=== PATIENT | male | born 1965 | race African-American/Black ===

== ENCOUNTER 2016-09-17 18:00 | Inpatient (IN) | payer OTHER ==
[~2016-09-17] VITALS: Ht 172.7 cm; Wt 83.5 kg
[2016-09-17] VITALS (15 sets, daily range): BP systolic 103–181; BP diastolic 63–122
[~2016-09-17 18:00] MED LIST: ATROVENT 00.5 MG/3 M INH; DULERA1 AR1 IH; PROVENTIL2.5 MG/3 M INH; VENTOLIN H0.09 MG/Ac IH
--- NOTE | 2016-09-17 18:00 | NUR ---
BROUGHT IN BY AMBULANCE DUE TO FAMILY CALLED 911 FOR BEING UNRESPONSIVE .PT WITH HX OF ASTHMA.
[2016-09-17] MEDS ORDERED: ETOMIDATE 20 MG/10 ML VIAL IVP ONE (18:20)
[2016-09-17] MEDS ORDERED: ALBUTEROL 0.083% 2.5 MG/3 ML NEBU INH ONE (18:20)
[2016-09-17] MEDS ORDERED: LORazepam 2 MG/ML VIAL IVP ONE ×2 (18:20→18:40)
[2016-09-17] MEDS ORDERED: SUCCINYLCHOLINE CHLORIDE 200 MG/10 ML VIAL IVP ONE (18:20)
[2016-09-17] MEDS ORDERED: methylPREDNISolone SS 125 MG/2 ML VIAL IVP ONE (18:20)
[2016-09-17] MEDS ORDERED: MAG SULF 2000 MG/WATER PREMIX 50 ML IV ONE (18:20)
[2016-09-17] MEDS ORDERED: IPRATROPIUM 0.02% 0.5 MG/2.5 ML NEBU INH ONE (18:20)
[2016-09-17] MEDS ORDERED: LORazepam 2 MG/ML VIAL ONE (18:24)
[2016-09-17] MEDS ORDERED: PROPOFOL 1000 MG/100 ML PREMIX 100 ML IV ONE ×2 (18:35→18:42)
--- NOTE | 2016-09-17 18:45 | NUR ---
UNABLE TO DOCUMENT PROPOFOL DRIP AT [facility] BUT HANGED IV AT 5 MCG/KG/MIN.
--- NOTE | 2016-09-17 18:50 | NUR ---
Cooney catheter 16fr inserted without difficulty.
[2016-09-17] MEDS ORDERED: VECURONIUM 10 MG VIAL IVP ONE ×2 (19:30→19:35)
[2016-09-17] MEDS ORDERED: WATER STERILE 10 ML MC ONE (19:35)
--- NOTE | 2016-09-17 19:36 | NUR ---
HANDED OVER CARE TO SAPNA GODINEZ. REPORT GIVEN.
--- NOTE | 2016-09-17 19:38 | NUR ---
PT IN ER , VIA AMBULANCE, HX ASTHMA, WITH DISTRESS WITHOUT BREAST SOUNDS AUDIBLE.PT INTUBATED AT 19 10, SPUTUM COLLECTED, AND HHN WITH ALBUTEROL 5MG AND ATOVENT IN LINE OF THE VENT. ( RT ADAM AT BED SIDE HELPING WITH INTUBATION)
[2016-09-17] MEDS ORDERED: NACL 0.9% 1,000 ML IV ONE (19:45)
[2016-09-17] MEDS ORDERED: MORPHINE SULFATE 2 MG/ML SYR IVP PRN (20:00)
[2016-09-17] MEDS ORDERED: ONDANSETRON 4 MG/2 ML VIAL IVP PRN (20:00)
[2016-09-17] MEDS ORDERED: HYDROcodone/APAP 7.5/325 MG 1 TAB PO PRN (20:00)
[2016-09-17] MEDS ORDERED: ACETAMINOPHEN 325 MG TAB PO PRN (20:00)
--- NOTE | 2016-09-17 20:13 | NUR ---
ABG DONE, REPORTED TO DR ONTIVEROS, CHANGES IN THE SETTING WAS DONE, AC 12, VT 500, AND FIO2 TO 50%(RN NOTIFIED)
--- NOTE | 2016-09-17 20:16 | NUR ---
Patient will be admitted to care of DR CRABTREE. Admited to ICU 3. Will go to room 3. Belongings list completed. Report to THEODORE ALEJO .
--- NOTE | 2016-09-17 21:13 | NUR ---
TRANSFERRED TO ICU3 WITHOUT INCIDENT. PLACED BACK ON SAME VENT WITH SAME PARAMETERS. RN AT BEDSIDE.
[2016-09-17] MEDS ORDERED: PROPOFOL 1000 MG/100 ML PREMIX 100 ML IV PRN (21:40)
--- NOTE | 2016-09-17 22:25 | NUR ---
RECEIVED REPORT FROM SETH TONY RN, ADMISSION FROM ER. DR. JOSE CAME IN TO SEE PATIENT AND TALKED TO THE FAMILY. SEDATED ON PROPOFOL AT 25MGC/KG/MIN. FULL CODE, ON ELECTROPLATING SALES REPRESENTATIVE, VITALLY STABLE. ETT TO VENT: FIO2 50%, TV 500, AC RATE OF 12, PEEP OF 5. NGT ON RT. NARE CLAMPED. WITH PERIPHERAL IV G20 ON RIGHT AC RUNNING PROPOFOL. PERIPHERAL IV G20 ON LEFT HAND G20. SEARS CATHETER DRAINING TO YELLOWISH URINE OUTPUT. SKIN INTACT. SCD ON BOTH LEGS APPLIED.
--- NOTE | 2016-09-17 22:38 | NUR ---
ABG DONE, RESULTS REPORTED TO DR JOSE, PT TO REMAIN ON SAME VENT PARAMETERS AC 12, VT500, PEEP+5, FI02 50%
--- NOTE | 2016-09-17 22:55 | NUR ---
PT WAS MOVED FROM ICU BED 3 TO ICU BED 5. RT AT BEDSIDE WITH RN. NO DISTRESS/ NO SOB NOTED AT THIS TIME
--- NOTE | 2016-09-17 22:55 | NUR ---
TRANSFERRED TO ICU5 PLACED BACK ON THE VENT WITH THE SAME PARAMETERS. RETAPED ETT AT 24CM PER DR JOSE. PT TOLERATING SUPPORT WELL. NO RESP DISTRESS NOTED.
[2016-09-17] MEDS: NACL 0.9% 1,000 ML IV SCH (23:10)
[2016-09-17] MEDS: LEVOFLOXACIN 750 MG/D5W PREMIX 150 ML IV SCH (23:12)
--- NOTE | 2016-09-17 23:15 | NUR ---
PAGED DIVISION TOLL WIRE CHIEF DOCTOR OF DR. CRABTERE. DR. BARTLETT CALLED BACK AND CLARIFIED WITH HER FOR THE NEXT TROPONIN ORDER. DR. BARTLETT SAID SHE WILL PUT IN THE ORDER.
[2016-09-18] VITALS (104 sets, daily range): BP systolic 92–154; BP diastolic 46–108
[2016-09-18] MEDS: ALBUTEROL SULFATE/IPRATROPIU 3 ML SOL IH SCH ×7 (00:20→23:00)
--- NOTE | 2016-09-18 00:31 | NUR ---
HHNTX GIVEN, SUCTION SML AMT OF THICK YEL SECRETION, TOLERATED WELL.
[2016-09-18] MEDS: PROPOFOL 1000 MG/100 ML PREMIX 100 ML IV PRN ×6 (00:40→21:49)
--- NOTE | 2016-09-18 01:38 | NUR ---
PT TAKEN AT TO CT AT 0105. BACK TO ICU 5, PLACED BACK ON VENT WITH SAME PARAMETERS.
--- NOTE | 2016-09-18 02:00 | NUR ---
PATIENT VOMITED FOOD CONTENTS. SUCTIONING ORALLY DONE. NGT CONNECTED TO LOW INTERMITTENT SUCTION. DR. GAYTAN INFORMED. ORDERS TAKEN.
--- NOTE | 2016-09-18 02:14 | NUR ---
RECEIVED CRITICAL CT SCAN RESULT. PAGED AND NOTIFIED DR. GAYTAN.
--- NOTE | 2016-09-18 04:20 | NUR ---
NOTIFIED DR. BARTLETT FOR CRITICAL LAB TROPONIN 0.274. NO ORDERS MADE AT THIS TIME. WILL FOLLOW UP.
[2016-09-18] MEDS: methylPREDNISolone SS 40 MG/ML VIAL IVP SCH ×3 (04:46→21:22)
[2016-09-18] MEDS ORDERED: methylPREDNISolone SS 40 MG/ML VIAL ONE (04:47)
--- NOTE | 2016-09-18 06:33 | NUR ---
AM CARE GIVEN, SUCTIONING OF SECRETIONS DONE. ALL LINENS AND GOWN CHANGED. VITALLY STABLE. STILL SEDATED. NO SIGNS OF RESPIRATORY DISTRESS AT THIS TIME.
[2016-09-18] MEDS: BUDESONIDE 0.5 MG/2 ML NEBU INH SCH ×2 (07:02→19:09)
--- NOTE | 2016-09-18 07:02 | NUR ---
RECEIVED ON A UnifyoSCAPE R860 VENTILATOR PLUGGED INTO RED OUTLET TOLERATING WELL WITHOUT ADVERSE REACTIONS NOTED TO AN ETT #7.5 SECURED WITH AN ANCHOR FAST AT 24CM REPOSITIONED TO RIGHT SIDE OF MOUTH CUFF PRESSURE CHECKED FOR MOV AMBU BAG NOTED AT HOB LOC QUIET SEDATED NON RESPONSIVE TO WAD PRINTING MACHINE OPERATOR VERBAL COMMANDS BREATH SOUNDS INSP WHEEZE BILATERAL WITH GOOD CHEST RISE AIRWAY PATENT Addendum: 09/18/16 at 0730 by Matt Adkins RT SATURATION 98% ON FIO2 OF 50% POST HHN THERAPY TITRATED FIO2 TO 45% BENITO/SAPNA NOTIFIED ABG RESULTS 09/17/16 @ 7139 REVIEWED
--- NOTE | 2016-09-18 07:05 | NUR ---
DR. BARRERA CAME IN AND SEE THE PATIENT, INFORMED OF POSITIVE FOR COCAINE AND PHENCYCLIDINE. PATIENT REPORT GIVEN TO DAY SHIFT RN BENITO. VITALLY STABLE. STILL SEDATED ON PROPOFOL. ENDORSED ABOUT FLU/PNEUMONIA VACCINE.
--- NOTE | 2016-09-18 07:28 | NUR ---
RECEIVED PT FROM HOSPITAL CNA SAPNA CONCEPCINO. PT IS SEDATED . MONITOR SHOWS SR. PT ON ETT TO VENT SETTING FIO2=45%, VT 500, AC 12, PEEP 5. NGT ON RIGHT NARES WITH LIWS. IV TO RIGHT AC #20 RUNNING PROPOFOL 45 MCG/KG/MIN AND LEFT HAND #20 RUNNING 0.9 NS AT 100 ML/HR. ABDOMEN SOFT WITH ACTIVE BOWEL SOUNDS. SEARS CATH IN PLACE WITH CLEAR LIGHT YELLOW URINE. SCDS IN PLACE, SKIN INTACT. SIDE RAILS UP X2 WITH LOW BED POSITION. HOB ELEVATED 30 DEGREES. NO FEVER. WILL CONTINUE TO MONITOR.
--- NOTE | 2016-09-18 07:32 | NUR ---
DR. CRABTREE AND HIS GROUP CAME IN TO SEE PT, UPDATED PT CONDITION. WILL FOLLOW UP.
--- NOTE | 2016-09-18 08:27 | NUR ---
PATIENT HAS BEEN SCREENED AND CATEGORIZED HIGH NUTRITION RISK. PATIENT WILL BE SEEN WITHIN 1-2 DAYS OF ADMISSION. 09/17/16-09/19/[address] Addendum: 09/18/16 at [address] DATE CORRECTION: 09/18/16-09/19/[address]
[2016-09-18] MEDS: SACCHAROMYCES 250 MG CAP PO SCH ×2 (09:17→21:22)
[2016-09-18] MEDS: DOCUSATE SODIUM 100 MG GELCAP PO SCH (09:18)
--- NOTE | 2016-09-18 09:55 | NUR ---
SEDATED RESTING WELL NO DISTRESS NOTED BREATH SOUNDS DIMINISHED BILATERAL GOOD CHEST RISE AIRWAY PATENT
--- NOTE | 2016-09-18 10:30 | NUR ---
DR. BARRERA PRESENT TO PT'S BEDSIDE TO EXPLAIN THE RISKS AND BENEFITS OF COMPUTED TOMOGRAPHY WITH CONTRAST AND CENTRAL VENOUS PRESSURE LINE INSERTION TO PT'S MOTHER EL STANLEY. QUESTIONS ANSWERED. PT'S MOTHER VERBALIZED UNDERSTANDING AND SIGNED CONSENTS.
[2016-09-18] MEDS ORDERED: MORPHINE SULFATE 2 MG/ML SYR IVP PRN (10:55)
[2016-09-18] MEDS ORDERED: ACETAMINOPHEN 325 MG TAB NG PRN (10:55)
[2016-09-18] MEDS ORDERED: ONDANSETRON 4 MG/2 ML VIAL IVP PRN (10:55)
[2016-09-18] MEDS ORDERED: HYDROcodone/APAP 5/325 MG 1 TAB TAB NG PRN (10:55)
--- NOTE | 2016-09-18 11:35 | NUR ---
ICE SKATING TEACHER AND RT PRESENTED AT PT'S BEDSIDE FOR COMPUTED TOMOGRAPHY OF CHEST AND SINUS WITH CONTRAST. CHANGED MONITOR TO ASSOCIATE SALES, MONITOR SHOWS SR. NO S/S OF RESPIRATORY DISTRESS NOTED. ACCOMPANIED BY RT, ICE SKATING TEACHER AND RN. PT VITALS STABLE AT THIS TIME.
--- NOTE | 2016-09-18 11:39 | NUR ---
TRANSFERRED TO RADIOLOGY FOR CT SCAN OF CHEST AND SINUSES Addendum: 09/18/16 at 1248 by Matt Adkins RT SUPPLEMENTAL OXYGEN VIA E TANK AT 15 LPM TO AMBU BAG/TRACH SATURATION 100% HR 92 AMBU BAG DEPRESSIN EVERY SIX SECONDS TOLERATED WELL WITHOUT INCIDENT
[2016-09-18] MEDS ORDERED: SODIUM PHOS / POTASSIUM PHOS 1 PKT PDR PO SCH (11:45)
[2016-09-18] MEDS ORDERED: PANTOPRAZOLE 40 MG INJ VIAL IVP SCH ×2 (11:45→15:45)
--- NOTE | 2016-09-18 11:48 | NUR ---
09/18/16 RD INITIAL ASSESSMENT COMPLETED PLEASE REFER TO NUTRITION ASSESSMENT UNDER CARE ACTIVITY FOR ESTIMATED NUTRITIONAL NEEDS. RD RECOMMENDATIONS: 1. CONTINUE NPO MEDICALLY APPROPRIATE PER MD 2. SHOULD PT REQUIRE NUTRITION SUPPORT D/T SKILLED LABOR INTUBATION CONSIDER INITIATING TUBE FEEDING NUTREN PULMONARY AT 20 ML/HR AND ADVANCE 15 ML Q6H TO GOAL OF 65 ML/HR VIA NGTUBE --AT GOAL OF 65 ML/HR, NUTRITION SUPPORT WILL PROVIDE 1560 ML TOTAL VOLUME, 2340 KCAL, 106 GM PROTEIN TO MEET 100% OF PT ESTIMATED KCAL NEEDS AND 86% OF PT ESTIMATED PROTEIN NEEDS 2. SHOULD PT BE SUCCESSFULLY EXTUBATED CONSIDER ADVANCE DIET TOLERATED TO REGULAR 3. RD WILL F/U 2-3 DAYS; HIGH RISK. FAUSTO MARRERO RD
--- NOTE | 2016-09-18 12:10 | NUR ---
SEDATED BREATH SOUND INSP/EXP RALES BILATERAL GOOD CHEST RISE ENDOTRACHEAL SUCTION FOR SMALL THICK YELLOW SECRETIONS AIRWAY PATENT
--- NOTE | 2016-09-18 12:17 | NUR ---
FAXED INITIAL REVIEW TO [facility] [phone] PHONE GALLITO [phone]
--- NOTE | 2016-09-18 12:17 | NUR ---
PT BACK TO ICU BED5. NO S/S OF RESPIRATORY DISTRESS NOTED. HOOKED PT ON BEDSIDE MONITOR SHOWING SR. ACCOMPANIED BY RTFELY, RN. WILL CONTINUE TO MONITOR.
[2016-09-18] MEDS: NACL 0.9% 1,000 ML IV SCH ×2 (13:05→17:50)
--- NOTE | 2016-09-18 13:24 | NUR ---
SEDATED RESTING WELL NO DISTRESS NOTED BREATH SOUND DIMINISHED BILATERAL WITH GOOD CHEST RISE AIRWAY PATENT
--- NOTE | 2016-09-18 13:49 | NUR ---
DR. JOSE CAME IN TO SEE PT, UPDATED PT'S CONDITION, WILL FOLLOW UP.
[2016-09-18] MEDS ORDERED: LORazepam 2 MG/ML VIAL IM/IVP SCH (15:35)
--- NOTE | 2016-09-18 15:40 | NUR ---
[facility]AM CAME IN, REPORT GIVEN, MADE THEM AWARE 5150 FORM IN THE DISCHARGE INSTRUCTION PACKAGE. Addendum: 09/18/16 at 1626 by Jeremias Gauthier RN U[facility] PT.
--- NOTE | 2016-09-18 15:50 | NUR ---
SEDATED NO DISTRESS NOTED BREATH SOUNDS DIMINISHED BILATERAL GOOD CHEST RISE ENDOTRACHEAL SUCTION FOR SMALL THIN YELLOW SECRETIONS AIRWAY PATENT
--- NOTE | 2016-09-18 16:12 | NUR ---
DR. BARRERA STARTED CENTRAL VENOUS PRESSURE LINE INSERTION. US GUIDED PER HOSPITAL PROTOCOL.
--- NOTE | 2016-09-18 16:35 | NUR ---
CENTRAL LINE INSERTION DONE. NO S/S OF RESPIRATORY DISTRESS NOTED. VITALS STABLE AT THIS TIME.
--- NOTE | 2016-09-18 16:55 | NUR ---
X-RAY FOR CENTRAL LINE PLACEMENT DONE.
--- NOTE | 2016-09-18 17:20 | NUR ---
SEDATED NO APPARENT RESPIRATORY DISTRESS NOTED BREATH SOUNDS DIFFUSED INSPIRATORY WHEEZE BILATERAL GOOD CHEST RISE SPUTUM COLLECTION DONE ENDOTRACHEAL SUCTION FOR MODERATE THIN YELLOW SECRETIONS AIRWAY PATENT
--- NOTE | 2016-09-18 17:35 | NUR ---
PT IS SEDATED. NO S/S OF RESPIRATORY DISTRESS NOTED. WILL CONTINUE TO MONITOR.
--- NOTE | 2016-09-18 18:05 | NUR ---
REPOSITIONED PT. OFF LOAD PRESSURE AREA. CLEANED PT, MAKE PT FEEL COMFORTABLE .
--- NOTE | 2016-09-18 19:15 | NUR ---
PT OM THE SAME VENT SETTING, PT ON PROPOFOL, TX OM LINE, NO DISTRESS NOTED
--- NOTE | 2016-09-18 19:18 | NUR ---
REPORT GIVEN TO SHEATHER SAPNA VILLALTA. PT IN STABLE CONDITION
--- NOTE | 2016-09-18 19:33 | NUR ---
RECEIVED BEDSIDE REPORT FROM BENITO ALEJO. PATIENT IS SEDATED AND SLEEPING IN BED. NO SIGNS OF RESPIRATORY DISTRESS OR SOB NOTED. PATIENT IS ETT TO VENT WITH SETTINGS OF FIO2 45%, TIDAL VOLUME 500, A/C 12, AND PEEP 5. BREATH SOUNDS ARE DIMINISHED UPON AUSCULTATION. BOWEL SOUNDS ARE HYPOACTIVE. THERE IS A NGT IN THE RIGHT NARES RECEIVING NUTREN PULMONARY AT 50ML/HR. THERE IS A SEARS CATHETER DRAINING TO GRAVITY WITH SMALL AMOUNT OF CLEAR YELLOW URINE NOTED. SCDS ARE IN PLACE FOR VTE PROPHYLAXIS. THERE IS A #20 IN THE PATIENT'S LEFT HAND SALINE LOCK. SITE IS DRY, INTACT, AND ASYMPTOMATIC. THERE IS A #20 IN THE RIGHT AC RECEIVING NORMAL SALINE AT 100 ML/HR AND PROPOFOL AT 45 MCG/KG/MIN. SITE IS DRY, INTACT, AND ASYMPTOMATIC. THERE IS A TRIPLE LUMEN CATHETER PRESENT IN THE RIJ. SITE IS DRY, INTACT, AND ASYMPTOMATIC. FOLLOWED UP WITH DR. SMITH'S ORDERS TO USE RIJ FOR IVF. VITALS ARE WNL. HOB AT 30 DEGREES WITH BED IN LOW POSITION. WILL CONTINUE TO MONITOR PATIENT. Addendum: 09/18/16 at 1948 by Rudy Mccrary RN PATIENT TOLERATING NGT FEEDING WELL. NO RESIDUAL NOTED.
--- NOTE | 2016-09-18 19:40 | NUR ---
PATIENT'S BROTHER ABHILASH AT BEDSIDE. NO CHANGES IN PATIENT'S CONDITION. CONTINUE TO MONITOR.
--- NOTE | 2016-09-18 19:55 | NUR ---
PATIENT'S BROTHER ABHILASH LEFT THE UNIT. NO CHANGES IN PATIENT'S CONDITION. VITALS ARE STABLE. CONTINUE TO MONITOR.
[2016-09-18] MEDS: LEVOFLOXACIN 750 MG/D5W PREMIX 150 ML IV SCH (21:22)
--- NOTE | 2016-09-18 21:35 | NUR ---
PATIENT TOLERATED SCHEDULED MEDICATION ADMINISTRATION. NO S/S OF SOB OR DISCOMFORT NOTED. PATIENT REPOSITIONED FOR COMFORT. VAP ORAL CARE RENDERED. HOB AT 30 DEGREES WITH BED IN LOW POSITION. CONTINUE TO MONITOR PATIENT.
[2016-09-18] MEDS ORDERED: SODIUM PHOS / POTASSIUM PHOS 1 PKT PDR ONE (22:07)
--- NOTE | 2016-09-18 22:15 | NUR ---
SPOKE WITH PATIENT'S MOTHER EL ON THE PHONE AND ASKED ABOUT PATIENT'S PNA AND FLU VACCINE, SHE SAID SHE DOESN'T KNOW IF HER SON ALREADY RECEIVED IT; SHE SAID WE CAN ASK ABOUT IT WHEN THE PATIENT WOKE UP.
[2016-09-19] VITALS (56 sets, daily range): BP systolic 97–141; BP diastolic 53–96
--- NOTE | 2016-09-19 00:16 | NUR ---
PATIENT REPOSITIONED FOR COMFORT. VAP ORAL CARE RENDERED. NO S/S OF RESPIRATORY DISTRESS OR SOB NOTED. HOB AT 30 DEGREES WITH BED IN LOW POSITION. WILL CONTINUE TO MONITOR PATIENT.
[2016-09-19] MEDS: PROPOFOL 1000 MG/100 ML PREMIX 100 ML IV PRN ×3 (01:06→08:48)
[2016-09-19] MEDS: NACL 0.9% 1,000 ML IV SCH ×2 (01:38→12:22)
[2016-09-19] MEDS: ALBUTEROL SULFATE/IPRATROPIU 3 ML SOL IH SCH ×6 (03:23→23:01)
--- NOTE | 2016-09-19 03:26 | NUR ---
MORNING CARE GIVEN. BED BATH PROVIDED. CHANGED LINENS AND PATIENT'S GOWNS. REPOSITIONED PATIENT FOR COMFORT. VAP ORAL CARE RENDERED. NO S/S OF SOB OR RESPIRATORY DISTRESS NOTED. HOB AT 30 DEGREES WITH BED IN LOW POSITION. CONTINUE TO MONITOR PATIENT.
--- NOTE | 2016-09-19 03:31 | NUR ---
RESPIRATORY THERAPIST AT BEDSIDE ADMINISTERING SCHEDULED BREATHING TREATMENT.
--- NOTE | 2016-09-19 03:32 | NUR ---
PT RESTING COMFORTABLY. TX GIVEN.
--- NOTE | 2016-09-19 05:00 | NUR ---
RESPIRATORY THERAPIST AT BEDSIDE.
--- NOTE | 2016-09-19 06:20 | NUR ---
PATIENT SEDATED AND SLEEPING IN BED. NO S/S OF RESPIRATORY DISTRESS NOTED. VITALS ARE STABLE. HOB AT 30 DEGREES WITH BED IN LOW POSITION. CONTINUE TO MONITOR PATIENT.
[2016-09-19] MEDS: BUDESONIDE 0.5 MG/2 ML NEBU INH SCH ×2 (06:59→19:05)
--- NOTE | 2016-09-19 06:59 | NUR ---
RECEIVED ON A [employer]SCAPE R860 VENTILATOR PLUGGED INTO RED OUTLET TOLERATING WELL WITHOUT INCIDENT TO AN ENDOTRACHEAL TUBE (ETT) #7.5 SECURED WITH AN ANCHOR FAST AT 26CM CUFF PRESSURE CHECKED FOR MOP ETT REPOSITIONED TO RIGHT SIDE OF MOUTH NO EVIDENCE OF SKIN BREAKDOWN AT LIP REGION AMBU BAG NOTED AT HOB SEDATED BREATH SOUNDS INSPIRATORY WHEEZE BILATERAL WITH GOOD CHEST RISE HHN THERAPY GIVEN ORDERED TOLERATED WELL WITHOUT ADVERSE REACTIONS NOTED AIRWAY PATENT
--- NOTE | 2016-09-19 07:17 | NUR ---
PATIENT IN STABLE CONDITION. RESPIRATORY AT BEDSIDE. ENDORSED CONTINUITY OF CARE TO BENITO ALEJO AND BRADY ALEJO.
--- NOTE | 2016-09-19 07:30 | NUR ---
RECEIVED BEDSIDE REPORT FROM VEHICLE CHECK IN CLERK RN AMBAR. PT IS SEDATED . MONITOR SHOWS ST. PT ON ETT TO VENT SETTING FIO2=45%, VT 500, AC 12, PEEP 5. NO S/S OF RESPIRATORY DISTRESS NOTED. BREATH SOUNDS DIMINISHED. NGT FEEDING AT 50ML/HR,RESIDUAL 20ML, RETURNED IT BACK. PT HAS RIGHT IJ TLC RUNNING PROPOFOL 45 MCG/KG/MIN AND 0.9 NS AT 100 ML/HR. ABDOMEN SOFT WITH HYPOACTIVE BOWEL SOUNDS. SEARS CATH IN PLACE WITH MODERATE CLEAR YELLOW URINE. SCDS IN PLACE, SKIN INTACT. SIDE RAILS UP X2 WITH LOW BED POSITION. HOB ELEVATED 30 DEGREES. NO FEVER. ORAL CARE GIVEN.WILL CONTINUE TO MONITOR.
--- NOTE | 2016-09-19 08:45 | NUR ---
HAI/LEYLA ALEJO INSTRUCTING MICHELLE TO WEAN PATIENT OFF PROPOFOL SEDATION CREATIVE TECHNOLOGIST UNABLE TO WEAN PATIENT AT THIS TIME Addendum: 09/19/16 at 0856 by Matt Adkins RT PER ANDRZEJ BOBO PROPOFOL SEDATION 10mcg EVERY 10 MINUTES CURRENTLY RUNNING AT 40mcg/kl/min
[2016-09-19] MEDS: PANTOPRAZOLE 40 MG INJ VIAL IVP SCH (08:50)
--- NOTE | 2016-09-19 08:50 | NUR ---
NO APPARENT RESPIRATORY DISTRESS NOTED AT THIS TIME DIFFUSED INSP WHEEZE BILATERAL GOOD CHEST RISE AIRWAY PATENT
[2016-09-19] MEDS: methylPREDNISolone SS 40 MG/ML VIAL IVP SCH ×2 (08:51→20:02)
[2016-09-19] MEDS: DOCUSATE SODIUM 100 MG GELCAP PO SCH (08:51)
[2016-09-19] MEDS: SACCHAROMYCES 250 MG CAP PO SCH ×2 (08:51→20:02)
[2016-09-19] MEDS ORDERED: DOCUSATE 100 MG/10 ML UDC PO SCH (10:02)
[2016-09-19] MEDS ORDERED: ACETAMINOPHEN 650 MG/20.3 ML UDC PO PRN (10:02)
--- NOTE | 2016-09-19 10:02 | NUR ---
PATIENT OF PROPOFOL SEDATION LOC AWAKE NOT FULLY FOLLOWING SOAKING PITS SUPERVISOR VERBAL COMMANDS AT THIS TIME START WEANING WITHIN 30 MINUTES
--- NOTE | 2016-09-19 10:23 | NUR ---
PATIENT AWAKE ABLE TO FOLLOW SIMPLE COMMANDS THROUGH HAND MOTION PATIENT WANTED TO KNOW "HOW LONG HE HAS BEEN IN THE HOSPITAL ICU" EXTERNAL GRINDER TENDER RESPONSE TO PATIENT "2 DAYS" PATIENT ACKNOWLEDGE WITH NOD OF HEAD PATIENT TO START WEANING TOLERATED CPAP/PS [id number] PEEP 5 cmH20
--- NOTE | 2016-09-19 10:27 | NUR ---
AWAKE ABLE TO FOLLOW COMMANDS TOLERATING CPAP WEANING WITHOUT INCIDENT BREATH SOUNDS EXP RHONCHI BILATERAL GOOD CHEST RISE ENDOTRACHEAL SUCTION FOR MODERATE YELLOW TO CLEAR SECRETIONS AIRWAY PATENT
--- NOTE | 2016-09-19 10:30 | NUR ---
FNS CONSULT RECEIVED ON 09/19/[address] SPOKE WITH RESIDENT REGARDING TUBE FEEDING RECOMMENDATIONS. PLEASE REFER TO RD INITIAL ASSESSMENT DATED 09/18/[address]ITIONAL NEEDS [address] RECOMMENDATIONS: 1.CONSIDER INITIATING TUBE FEEDING NUTREN PULMONARY AT 20 ML/HR AND ADVANCE 15 ML Q6H TO GOAL OF 65 ML/HR VIA NGTUBE --AT GOAL OF 65 ML/HR, NUTRITION SUPPORT WILL PROVIDE 1560 ML TOTAL VOLUME, 2340 KCAL, 106 GM PROTEIN TO MEET 100% OF PT ESTIMATED KCAL NEEDS AND 86% OF PT ESTIMATED PROTEIN NEEDS 2. SHOULD PT BE SUCCESSFULLY EXTUBATED CONSIDER ADVANCE DIET TOLERATED TO REGULAR FAUSTO MARRERO, JOVITA [phone]
--- NOTE | 2016-09-19 10:34 | NUR ---
DR. JOSE IN TO SEE PT. UPDATED PT CONDITION, WILL FOLLOW UP.
--- NOTE | 2016-09-19 10:35 | NUR ---
DR.OWAIS JOSE AT BEDSIDE REVIEWED PATIENT ASSESSMENT AND WEANING NEW ORDERS ARTERIAL BLOOD GAS DRAW 30 MINUTES AFTER INITIAL WEANING TIME
--- NOTE | 2016-09-19 10:40 | NUR ---
HEAD OF BED AT 45 DEGREES
--- NOTE | 2016-09-19 11:25 | NUR ---
PAGED DR. RUIZ JOSE TO REVIEW ABG REPORT, WEANING PARAMETERS AND PATIENT ASSESSMENT
--- NOTE | 2016-09-19 11:25 | NUR ---
SUCTIONED PT'S MOUTH, PT TOLERATED WELL, SHOWED PT HOW TO SUCTION, PT VERBALIZED UNDERSTANDING AND RETURN DEMONSTRATION MADE. LEFT SUCTION WITHIN REACH, WILL CONTINUE TO MONITOR.
--- NOTE | 2016-09-19 11:34 | NUR ---
CALL BACK FORM DR.OWAIS JOSE REVIEWED ABG REPORT, WEANING PARAMETERS AND PATIENT ASSESSMENT "OK" TO EXTUBATE PATIENT NEW ORDERS: CONTINUE BREATHING TREATMENTS Q4 DUONEB AND Q2PRN FOR SOB/WHEEZE DUONEB
--- NOTE | 2016-09-19 11:50 | NUR ---
POST HHN THERAPY ON VENTILATOR PRIOR TO EXTUBATION PULMONARY SUCTION FOR SMALL THIN YELLOW/BROWN SECRETIONS PATIENT EXTUBATED ORAL PHARYNGEAL SUCTION FOR LARGE MUCOID CLEAR SECRETIONS TO THIN YELLOW/BROWN SECRETIONS PLACED ON HUMIDIFIED SUPPLEMENTAL OXYGEN AT 3 LPM VIA NASAL CANNULA
--- NOTE | 2016-09-19 11:51 | NUR ---
CM NOTE CONCURRENT REVIEW FAXED TO [facility] / FAX# [phone]
--- NOTE | 2016-09-19 11:55 | NUR ---
PT EXTUBATED. PUT PT ON HUMIDIFIED OXYGEN 3L/MIN. NO S/S OF RESPIRATORY DISTRESS NOTED. PT IS AWAKE, ALERT. WILL CONTINUE TO MONITOR.
--- NOTE | 2016-09-19 13:30 | NUR ---
PT WANTED TO REMOVE NG TUBE. CALLED DR. BARRERA TO ASSESS PT. PER , OK TO REMOVE NG TUBE.
[2016-09-19] MEDS: ALBUTEROL SULFATE/IPRATROPIU 3 ML SOL IH PRN (13:38)
--- NOTE | 2016-09-19 13:50 | NUR ---
POST HHN THERAPY PATIENT PRESENTING WITH SPONTANEOUS PRODUCTIVE COUGH MODERATE THIN YELLOW SECRETIONS
--- NOTE | 2016-09-19 14:10 | NUR ---
PT 'S MOTHER PRESENT AT BEDSIDE, UPDATED PT CONDITION, QUESTIONS ANSWERED.
--- NOTE | 2016-09-19 16:20 | NUR ---
DR. HANKS PSYCHOLOGIST IN TO CHECK PT.
--- NOTE | 2016-09-19 17:30 | NUR ---
REMOVED SEARS CATH PER DR. BARRERA ORDER. PT HAD 1200ML CLEAR GREENISH URINE OUTPUT.
--- NOTE | 2016-09-19 18:35 | NUR ---
REMOVED IV ON LEFT HAND AND RIGHT AC, CATHETER TIP INTACT. ALL NEEDS MET AT THIS TIME. NO S/S OF RESPIRATORY DISTRESS OR DISCOMFORT NOTED, WILL CONTINUE TO MONITOR.
--- NOTE | 2016-09-19 19:06 | NUR ---
NO DISTRESS IN BED BR UP NO COMPLAINTS, NO SOB 3L NC HR 110 NO PAIN SCD ON IV INTACT TO FLOOR AT 2000
--- NOTE | 2016-09-19 19:23 | NUR ---
UNDERSTANDS PENDING TRANSFER
--- NOTE | 2016-09-19 21:10 | NUR ---
PT ARRIVED ON UNIT IN STABLE CONDITION, NO SOB, NO SIGNS OF DISTRESS. PT ON 3L O2 NC. PT IS AOX4, AMBULATES WITH ASSIST. SKIN IS INTACT. PT DENIES PAIN AT THIS TIME. VS STABLE. ORIENTED PT TO ROOM AND UNIT. PLAN OF CARE DISCUSSED WITH PT. SAFETY MEASURES IN PLACE. CALL LIGHT WITHIN REACH. WILL CONTINUE TO MONITOR.
[2016-09-19] MEDS: LEVOFLOXACIN 750 MG/D5W PREMIX 150 ML IV SCH (21:27)
--- NOTE | 2016-09-19 22:23 | NUR ---
PT RESTING IN BED COMFORTABLY, NO SOB, NO SIGNS OF DISTRESS. CENTRAL LINE SITE ASYMPTOMATIC, INTACT, PATENT, IVF RUNNING. PT DENIES PAIN AT THIS TIME. PLAN OF CARE DISCUSSED WITH PT. SAFETY MEASURES IN PLACE. CALL LIGHT WITHIN REACH. WILL CONTINUE TO MONITOR.
[2016-09-20] VITALS: BP 117/62
--- NOTE | 2016-09-20 | NUR ---
VS STABLE. PT ON 3L O2 NC. NO SOB, NO SIGNS OF DISTRESS. CENTRAL LINE SITE ASYMPTOMATIC, INTACT, PATENT, IVF RUNNING. PT DENIES PAIN AT THIS TIME. PLAN OF CARE DISCUSSED WITH PT. SAFETY MEASURES IN PLACE. CALL LIGHT WITHIN REACH. WILL CONTINUE TO MONITOR.
--- NOTE | 2016-09-20 02:09 | NUR ---
PT ASLEEP IN BED. NO SOB, NO SIGNS OF DISTRESS. IV SITE ASYMPTOMATIC, INTACT, PATENT, IVF RUNNING. SAFETY MEASURES IN PLACE. CALL LIGHT WITHIN REACH. WILL CONTINUE TO MONITOR.
[2016-09-20] MEDS: ALBUTEROL SULFATE/IPRATROPIU 3 ML SOL IH SCH ×4 (03:00→16:00)
--- NOTE | 2016-09-20 03:40 | NUR ---
NO SOB NOTED. PATIENT IS ASLEEP, WILL RESUME TREATMENT SCHEDULE IN AM
[2016-09-20 04:00] VITALS: BP 125/69
--- NOTE | 2016-09-20 04:06 | NUR ---
VS STABLE, PT ON 3L O2 NC. NO SOB, NO SIGNS OF DISTRESS. PT DENIES PAIN AT THIS TIME. IV SITE ASYMPTOMATIC, INTACT, PATENT, IVF RUNNING. PLAN OF CARE DISCUSSED WITH PT. SAFETY MEASURES IN PLACE. CLL LIGHT WITHIN REACH. WILL CONTINUE TO MONITOR.
[2016-09-20] MEDS: ALBUTEROL SULFATE/IPRATROPIU 3 ML SOL IH PRN (05:47)
--- NOTE | 2016-09-20 07:03 | NUR ---
ENDORSED PT IN STABLE CONDITION TO SAPNA HONG. ALL NEEDS HAVE BEEN MET AT THIS TIME.
--- NOTE | 2016-09-20 07:05 | NUR ---
RECEIVED PT FROM SHY RN ASLEEP BUT EASILY AWAKEN, NO S/S OF DISTRESS, WITH CENTRAL LINE ON RIGHT IJ TRIPLE LUMEN INFUSING FLUIDS WELL. NO COMPLAINTS OF PAIN AT THIS TIME. AAOX4, SKIN IS INTACT. SAFETY PRECAUTIONS ENFORCED. DISCUSSED PLAN OF CARE, PT VERBALIZED UNDERSTANDING. CALL LIGHT WITHIN REACH, WILL CONTINUE TO MONITOR.
[2016-09-20] MEDS: NACL 0.9% 1,000 ML IV SCH ×2 (07:23→16:13)
--- NOTE | 2016-09-20 07:42 | NUR ---
PT DOES NOT WANT BREATHING TX AT THIS TIME STATES HE WANTS TO EAT. WILL CHECK BACK AT LATER TIME FOR TX. PT NOT SOB AND NOT IN RESPIRATORY DISTRESS AT THIS TIME.
[2016-09-20 08:00] VITALS: BP 119/69
[2016-09-20] MEDS: BUDESONIDE 0.5 MG/2 ML NEBU INH SCH (08:26)
[2016-09-20] MEDS: SACCHAROMYCES 250 MG CAP PO SCH (08:40)
[2016-09-20] MEDS: PANTOPRAZOLE 40 MG INJ VIAL IVP SCH (08:41)
[2016-09-20] MEDS: methylPREDNISolone SS 40 MG/ML VIAL IVP SCH (08:41)
--- NOTE | 2016-09-20 08:41 | NUR ---
DUE MEDS GIVEN, PT TOLERATED WELL. NO SIGNS OF DISTRESS, ON ROOM AIR O2 SAT AT 95%. WITH RELATIVES AT BEDSIDE. CALL LIGHT WITHIN REACH, WILL CONTINUE TO MONITOR
[2016-09-20] MEDS ORDERED: ALBUTEROL SULFATE/IPRATROPIU 3 ML SOL IH PRN (08:55)
--- NOTE | 2016-09-20 10:25 | NUR ---
FAXED CONCURRENT REVIEW TO [facility] [phone] PHONE GALLITO [phone] I CALLED GALLITO AT [facility] AND INFORMED HER THAT THE PATIENT NEEDED NEBULIZER FOR HOME. SHE SAID TO CALL [facility] COORDINATOR FOR THE NEBULIZER. I LEFT A MESSAGE FOR HER TO CALL ME BACK,[phone].
[2016-09-20] MEDS ORDERED: levaquin PO (10:28)
[2016-09-20] MEDS ORDERED: QVAR HFA MDI7.3 G1 INH (10:31)
[2016-09-20] MEDS ORDERED: VENTOLIN H0.09 MG/Ac IH (10:32)
[2016-09-20] MEDS ORDERED: PREDNISONE10 MG PO (10:34)
--- NOTE | 2016-09-20 11:39 | NUR ---
SS NOTE: I SPOKE WITH PT BEDSIDE AND PROVIDED HIM WITH SUBSTANCE ABUSE RESOURCES.
[2016-09-20 12:00] VITALS: BP 135/83
[2016-09-20] MEDS ORDERED: ZOLOFT25 MG PO (13:02)
[2016-09-20] MEDS ORDERED: IPRATROPIUM BROM3 M1 IH (13:03)
[2016-09-20] MEDS ORDERED: FLORASTOR250 MG PO (13:06)
--- NOTE | 2016-09-20 13:20 | NUR ---
PULLED PT'S RIGHT IJ CENTRAL LINE, PT TOLERATED WELL. ALL NEEDS MET AT THIS TIME, CALL LIGHT WITHIN REACH, WILL CONTINUE TO MONITOR.
--- NOTE | 2016-09-20 13:39 | NUR ---
MADE 2 CALLS TO GALLITO MALONEY [facility] COORDINATOR THIS AM, NO CALL BACK. I CALLED AGAIN AND WAS ABLE TO SPEAK WITH GALLITO. SHE SAID THAT [employer] [facility] [employer] WILL DO THE NEBULIZER AND SHE IS WAITING TO HEAR FROM THEM TO WHEN THEY WILL DELIVER THE NEBULIZER. PHONE FOR GALLITO MALONEY, [phone]
--- NOTE | 2016-09-20 15:21 | NUR ---
DISCHARGE INSTRUCTIONS GIVEN, PT VERBALIZED UNDERSTANDING. TELE AND ID WRISTBAND REMOVED. NO S/ S OF RESPIRATORY DISTRESS OR DISCOMFORT. PT STILL IN THE ROOM AWAITING FOR PICKUP.
--- NOTE | 2016-09-20 16:55 | NUR ---
PT LEFT UNIT IN STABLE CONDITION AMBULATING WITH COUSIN
--- NOTE | 2016-09-24 07:57 | NUR ---
PER REQUEST OF BENITO FROM [facility]. GROUP, DISCHARGE SUMMARY FAXED TO HER AT [phone].
== END 2016-09-20 16:55 | disposition home or self-care (01) | DRG 208 ==
LOC: MED 18:00 → MIC 20:04 → MTU 09-19 20:57
PROVIDERS: ADMIT Family Medicine; ATTEND Family Medicine
PROC: 5A1945Z Respiratory Ventilation, 24-96 Consecutive Hours (ICD-10-PCS; principal; 2016-09-17)
PROC: 02HV33Z Insertion of Infusion Device into Superior Vena Cava, Percutaneous Approach (ICD-10-PCS; 2016-09-18)
PROC: B548ZZA Ultrasonography of Superior Vena Cava, Guidance (ICD-10-PCS; 2016-09-18)
DX: J45.901 Unspecified asthma with (acute) exacerbation (principal); J96.21 Acute and chronic respiratory failure with hypoxia; N17.0 Acute kidney failure with tubular necrosis; I21.3 ST elevation (STEMI) myocardial infarction of unspecified site; J96.22 Acute and chronic respiratory failure with hypercapnia; E44.1 Mild protein-calorie malnutrition; J98.11 Atelectasis; F33.2 Major depressive disorder, recurrent severe without psychotic features; I24.8 Other forms of acute ischemic heart disease; F15.20 Other stimulant dependence, uncomplicated; E83.39 Other disorders of phosphorus metabolism; R73.9 Hyperglycemia, unspecified; D72.829 Elevated white blood cell count, unspecified; T38.0X5A Adverse effect of glucocorticoids and synthetic analogues, initial encounter; J32.9 Chronic sinusitis, unspecified; J84.10 Pulmonary fibrosis, unspecified; J98.4 Other disorders of lung; F14.10 Cocaine abuse, uncomplicated; F12.90 Cannabis use, unspecified, uncomplicated; F16.10 Hallucinogen abuse, uncomplicated; F17.210 Nicotine dependence, cigarettes, uncomplicated; Z88.6 Allergy status to analgesic agent; Z79.899 Other long term (current) drug therapy; Z90.81 Acquired absence of spleen; Z72.89 Other problems related to lifestyle; Z68.28 Body mass index [BMI] 28.0-28.9, adult

== ENCOUNTER 2017-01-09 15:13 | Emergency (ER) | payer OTHER ==
[~2017-01-09] VITALS: Ht 172.7 cm; Wt 83.9 kg
[~2017-01-09 15:13] MED LIST changes: +ALBU0.0912 IH; -ATROVENT 00.5 MG/3 M INH; +BECL0.0464 INH; -DULERA1 AR1 IH; +FORM1 IH; +IPRA3AMP IH; +PRED10TA5 PO; -PROVENTIL2.5 MG/3 M INH; +SACC250C4 PO; +SERT25TA PO; -VENTOLIN H0.09 MG/Ac IH; +levaquin PO
[2017-01-09 15:18] VITALS: BP 168/90
--- NOTE | 2017-01-09 15:22 | NUR ---
Patient to OF2.
[2017-01-09] MEDS ORDERED: ALBUTEROL 0.083% 2.5 MG/3 ML NEBU INH ONE (15:25)
[2017-01-09] MEDS ORDERED: predniSONE 20 MG TAB PO ONE (15:25)
[2017-01-09] MEDS ORDERED: ALBUTEROL SULFATE/IPRATROPIU 3 ML SOL IH ONE (15:25)
--- NOTE | 2017-01-09 15:27 | NUR ---
Patient to bed 08.
--- NOTE | 2017-01-09 15:28 | NUR ---
RT at bedside to give patient breathing treatment.
--- NOTE | 2017-01-09 15:28 | NUR ---
51/M BIB SELF C/O SOB X15 MIN. HX ASTHMA. DENIES N/V/D; SKIN IS PINK/WARM/DRY; AAOX4 WITH EVEN AND STEADY GAIT; LUNGS WEEZING BL; HR EVEN AND REGULAR; PT DENIES ANY FEVER, CP OR COUGH AT THIS TIME; PATIENT STATES PAIN OF 0/10 AT THIS TIME; VSS; PATIENT POSITIONED FOR COMFORT; HOB ELEVATED; BEDRAILS UP X2; BED DOWN. ER MD MADE AWARE OF PT STATUS.
[2017-01-09] MEDS ORDERED: predniSONE 20 MG TAB ONE (15:43)
--- NOTE | 2017-01-09 16:00 | NUR ---
Patient appears to be resting comfortably in bed. Vital Signs within normal limits. Respirations even and unlabored.WILL CONTINUE TO MONITOR
--- NOTE | 2017-01-09 16:25 | NUR ---
ER MILI CHANDRA REEVALUATING PT AT BEDSIDE. HR 117/MINS BP 106/72. Patient appears to be resting comfortably in bed. Respirations even and unlabored.
[2017-01-09 16:31] VITALS: BP 106/72
--- NOTE | 2017-01-09 16:33 | NUR ---
Patient discharged with v/s stable. Written and verbal after care instructions given and explained. Patient alert, oriented and verbalized understanding of instructions. Ambulatory with steady gait. All questions addressed prior to discharge. ID band removed. Patient advised to follow up with PMD. Rx of IPRATROPIUM, PREDNISONE & VENTOLIN HFA given. Patient educated on indication of medication including possible reaction and side effects. Opportunity to ask questions provided and answered.
== END 2017-01-09 16:33 | disposition home or self-care (01) ==
LOC: MED 15:13
DX: J45.901 Unspecified asthma with (acute) exacerbation (principal)
CPT/HCPCS: 94640; 99283; J7512

== ENCOUNTER 2017-07-09 06:00 | Emergency (ER) | payer OTHER ==
[~2017-07-09] VITALS: Ht 172.7 cm; Wt 83.0 kg
[~2017-07-09 06:00] MED LIST changes: +FLOR250 PO; -SACC250C4 PO
[2017-07-09 06:03] VITALS: BP 143/68
[2017-07-09] MEDS: IPRATROPIUM 0.02% 0.5 MG/2.5 ML NEBU INH ONE (06:28)
[2017-07-09] MEDS: ALBUTEROL 0.083% 2.5 MG/3 ML NEBU INH ONE (06:28)
[2017-07-09] MEDS: predniSONE 20 MG TAB PO ONE (06:29)
[2017-07-09 06:52] VITALS: BP 143/68
== END 2017-07-09 06:51 | disposition home or self-care (01) ==
LOC: MED 06:00
DX: J45.901 Unspecified asthma with (acute) exacerbation (principal); R03.0 Elevated blood-pressure reading, without diagnosis of hypertension; Z88.6 Allergy status to analgesic agent; Z90.49 Acquired absence of other specified parts of digestive tract
CPT/HCPCS: 94640; 99283; J7512; J7613; J7644

== ENCOUNTER 2017-07-29 14:48 | Emergency (ER) | payer OTHER ==
[~2017-07-29] VITALS: Ht 172.7 cm; Wt 79.8 kg
--- NOTE | 2017-07-29 14:40 | NUR ---
PT BIBA ON CPAP AND HHN TX. PUT PT ON BIPAP WITH HHN TX ORDERED. WILL CONTINUE TO MONITOR.
[2017-07-29 14:49] VITALS: BP 159/10
--- NOTE | 2017-07-29 14:49 | NUR ---
PT BIBA TO BED 1.
[2017-07-29] MEDS ORDERED: ALBUTEROL SULFATE/IPRATROPIU 3 ML SOL IH ONE ×2 (14:50→15:55)
[2017-07-29] MEDS ORDERED: methylPREDNISolone SS 125 MG in WATER STERILE 2 ML IV ONE (14:50)
[2017-07-29] MEDS ORDERED: ALBUTEROL 0.083% 2.5 MG/3 ML NEBU INH ONE ×2 (14:50→15:55)
--- NOTE | 2017-07-29 14:52 | NUR ---
52M BIBA FROM HOME C/O SHORTNESS OF BREATH AND DIFFICULTY BREATHING X THIS MORNING; PT C/O PRODUCTIVE COUGH WITH YELLOW PHLEGM X TODAY; RR LABORED AND DEEP WITH WHEEZING HEARD THROUGHOUT; PT AA&OX4, PERRLA, STATES NO PAIN AND NO N/V/D AT THIS TIME; SKIN IS WARM/DRY/INTACT AT THIS TIME; PT PLACED ON MONITOR, RESTING IN BED WITH HOB ELEVATED AND IN LOWEST POSITION; POSITIONED FOR COMFORT; ER MD MADE AWARE OF STATUS. WILL CONTINUE TO MONITOR.
[2017-07-29 14:55] VITALS: BP 160/91
--- NOTE | 2017-07-29 14:57 | NUR ---
RT AT BEDSIDE.
--- NOTE | 2017-07-29 15:03 | NUR ---
XRAY AT BEDSIDE.
--- NOTE | 2017-07-29 15:07 | NUR ---
LAB AT BEDSIDE.
[2017-07-29 15:27] LABS: ANION GAP 9.6 (8-16); CARBON DIOXIDE 31.4 mmol/L (21-32); CREATININE 1.1 mg/dL (0.7-1.3)
[2017-07-29 15:30] LABS: BASOPHILS # (AUTO) 0.5 K/uL (0.00-0.22); EOSINOPHILS # (AUTO) 0.8 K/uL (0-0.4); HEMOGLOBIN 15.1 g/dL (12.0-18.0); LYMPHOCYTES # (AUTO) 2.2 K/uL (2.0-11.5); MEAN CORPUSCULAR HEMOGLOBIN 28 pg (27-31); MEAN CORPUSCULAR HGB CONC 31 g/dL (33-37); MEAN CORPUSCULAR VOLUME 90 fL (80-94); MONOCYTES # (AUTO) 1.6 K/uL (0.8-1.0); NEUTROPHILS # (AUTO) 5.4 K/uL (1.8-7.7); PLATELET COUNT (AUTO) 426 K/uL (140-450); RED BLOOD CELL COUNT(AUTO) 5.36 MIL/uL (4.20-6.10); RED CELL DISTRIBUTION WIDTH 14.1 % (11.6-13.7); WHITE BLOOD COUNT (AUTO) 10.6 K/uL (4.8-10.8)
[2017-07-29 15:32] LABS: ALBUMIN 3.5 g/dL (3.4-5.0); TOTAL BILIRUBIN 0.6 mg/dL (0.0-1.0)
[2017-07-29 15:35] LABS: PROTHROMBIN TIME 10.8 secs (10.8-13.4)
--- NOTE | 2017-07-29 15:50 | NUR ---
ER MD DR. HERNANDEZ EVALUATING PT AT BEDSIDE.
--- NOTE | 2017-07-29 15:57 | NUR ---
PT TAKEN OFF BI-PAP MACHINE PER ER MD DR. HERNANDEZ ORDER; PT STATES " I FEEL BETTER"; PT SPEAKING IN FULL SENTENCES AT THIS TIME; RR EVEN/UNLABORED AT THIS TIME; WILL CONTINUE TO MONITOR.
--- NOTE | 2017-07-29 16:00 | NUR ---
PT OFF BIPAP
--- NOTE | 2017-07-29 16:10 | NUR ---
RT AT BEDSIDE FOR BREATHING TX.
--- NOTE | 2017-07-29 16:55 | NUR ---
IV removed, catheter intact and site benign. Applied folded 4x4 gauze and tape to stop bleeding. Pt tolerated procedure well.
[2017-07-29 17:01] VITALS: BP 124/74
--- NOTE | 2017-07-29 17:01 | NUR ---
Patient discharged with v/s stable. Written and verbal after care instructions given and explained. Patient alert, oriented and verbalized understanding of instructions. Ambulatory with steady gait. All questions addressed prior to discharge. ID band removed. Patient advised to follow up with PMD. Rx of ALBUTEROL, PREDNISONE & IPRATROPIUM BROMIDE/ALBUTEROL SULFATE given. Patient educated on indication of medication including possible reaction and side effects. Opportunity to ask questions provided and answered.
== END 2017-07-29 17:01 | disposition home or self-care (01) ==
LOC: MED 14:48
DX: J45.909 Unspecified asthma, uncomplicated (principal); Z88.6 Allergy status to analgesic agent; F12.10 Cannabis abuse, uncomplicated
CPT/HCPCS: 36415; 71010; 80053; 83880; 84484; 85025; 85610; 85730; 94640; 94760; 96374; 99285; J2930; J7613; J7620; Q0092

== ENCOUNTER 2018-04-13 12:54 | Inpatient (IN) | payer OTHER ==
[~2018-04-13] VITALS: Ht 172.7 cm; Wt 82.6 kg
[~2018-04-13 12:54] MED LIST changes: +ALBU3SOL83 IH; -IPRA3AMP IH; -levaquin PO
--- NOTE | 2018-04-13 12:56 | NUR ---
Patient ambulated to bed 6. RN evaluating patient at bedside.
[2018-04-13 12:59] VITALS: BP 132/84
--- NOTE | 2018-04-13 13:00 | NUR ---
52/M BIB AUNT C/O SOB TODAY WITH EXP WHZ AND ACCESORY MUSCLE USE; TAKEN NEBULIZER TX AT HOME 20 MIN PRIOR TO ARRIVAL WITH NO RELIEF. HX; ASTHMA. RX; ALBUTEROL.DENIES N/V/D; SKIN IS PINK/WARM/DRY; AAOX4 WITH EVEN AND STEADY GAIT; LUNGS WHEEZING BL; HR TACHY 127/MINS;PATIENT STATES PAIN OF 0/10 AT THIS TIME. PATIENT POSITIONED FOR COMFORT; HOB ELEVATED; BEDRAILS UP X2; BED DOWN. ER MD MADE AWARE OF PT STATUS.
[2018-04-13] MEDS ORDERED: ALBUTEROL 0.083% 2.5 MG/3 ML NEBU INH ONE ×2 (13:05→13:09)
[2018-04-13] MEDS ORDERED: IPRATROPIUM 0.02% 0.5 MG/2.5 ML NEBU INH ONE ×2 (13:05→13:09)
--- NOTE | 2018-04-13 13:05 | NUR ---
Breathing treatment administered at bedside by respiratory therapist.
[2018-04-13] MEDS ORDERED: DEXAMETHASONE 10 MG/ML VIAL IM ONE (13:15)
--- NOTE | 2018-04-13 13:25 | NUR ---
PATIENT PRESENTING WITH DECREASED PEAK FLOW ASSESSMENT FROM 600 M/L TO 350 M/L INCREASED WOB RR 29 HR 138 DIAPHORETIC BREATH SOUNDS DESCENDING APEX TO MID TO DMINISHED WITH WHEEZEES AT BILATERL BASES PATIENT STATES "I CAN'T BREATHE I'M READY TO PASSOUT
--- NOTE | 2018-04-13 13:28 | NUR ---
PATIENT PLACED ON [employer] V60 BIPAP PLUGGED INTO RED OUTLET TO A MEDIUM FACIAL MASK WITH SETTINGS NOTED
--- NOTE | 2018-04-13 13:30 | NUR ---
Dr. Hussein evaluating patient at bedside.
[2018-04-13] MEDS ORDERED: NACL 0.9% 2,000 ML IV SCH (13:33)
--- NOTE | 2018-04-13 13:34 | NUR ---
Patient placed on BIPAP by respiratory therapist.
[2018-04-13] MEDS ORDERED: MAG SULF 2000 MG/WATER PREMIX 50 ML IV ONE (13:35)
[2018-04-13] MEDS ORDERED: methylPREDNISolone SS 125 MG/2 ML VIAL IVP ONE (13:35)
[2018-04-13] MEDS ORDERED: LORazepam 2 MG/ML VIAL IVP ONE (13:40)
--- NOTE | 2018-04-13 13:53 | NUR ---
LAB AT BEDSIDE.
--- NOTE | 2018-04-13 13:56 | NUR ---
Dr. Hussein re-evaluating patient at bedside.
--- NOTE | 2018-04-13 14:12 | NUR ---
technical writer at bedside for CXR.
[2018-04-13 14:13] LABS: BASOPHILS # (AUTO) 0.1 K/uL (0.00-0.22); BASOPHILS % (AUTO) 0.7 % (0.0-2.0); EOSINOPHILS # (AUTO) 0.3 K/uL (0-0.4); EOSINOPHILS % (AUTO) 2.6 % (0.0-4.0); HEMATOCRIT 45.6 % (36-52); LYMPHOCYTES # (AUTO) 3.4 K/uL (2.0-11.5); LYMPHOCYTES % (AUTO) 27.3 % (20.5-51.1); MEAN CORPUSCULAR HEMOGLOBIN 30 pg (27-31); MEAN CORPUSCULAR HGB CONC 33 g/dL (33-37); MEAN CORPUSCULAR VOLUME 90.3 fL (80-94); MONOCYTES # (AUTO) 1.7 K/uL (0.8-1.0); MONOCYTES % (AUTO) 13.5 % (1.7-9.3); NEUTROPHILS % (AUTO) 55.9 % (42.2-75.2); PLATELET COUNT (AUTO) 347 K/uL (140-450); RED BLOOD CELL COUNT(AUTO) 5.05 MIL/uL (4.20-6.10); RED CELL DISTRIBUTION WIDTH 15.4 % (11.6-13.7); WHITE BLOOD COUNT (AUTO) 12.5 K/uL (4.8-10.8)
[2018-04-13 14:26] LABS: ANION GAP 10.7 (8-16); CARBON DIOXIDE 31.8 mmol/L (21-32); CREATININE 0.9 mg/dL (0.7-1.3); POTASSIUM 3.5 mmol/L (3.5-5.1); PROTHROMBIN TIME 9.8 secs (10.8-13.4)
[2018-04-13 14:32] LABS: TOTAL BILIRUBIN 0.4 mg/dL (0.0-1.0)
[2018-04-13 14:49] LABS: APPEARANCE,URINE CLEAR (CLEAR); BILIRUBIN,URINE NEGATIVE (NEGATIVE); BLOOD, URINE TRACE-L (NEGATIVE); COLOR,URINE YELLOW (YELLOW); LEUKOCYTE ESTERASE ,URINE NEGATIVE (NEGATIVE); NITRITE, URINE NEGATIVE (NEGATIVE); UGLUCOSE NEGATIVE (NEGATIVE)
[2018-04-13 15:04] LABS: RBC,URINE 3-10 (FEW) /HPF (0-5); WBC,URINE 0-5 (RARE) /HPF (0-5)
--- NOTE | 2018-04-13 15:04 | NUR ---
Patient appears to be resting comfortably in bed. AT BEDSIDE. BP 135/59, P OX 99%,ON BIPAP; Respirations even and unlabored.WILL CONTINUE TO MONITOR.
[2018-04-13] MEDS ORDERED: ONDANSETRON 4 MG/2 ML VIAL IM/IVP PRN (15:05)
[2018-04-13] MEDS ORDERED: HYDROcodone/APAP 7.5/325 MG 1 TAB PO PRN (15:05)
[2018-04-13] MEDS ORDERED: ACETAMINOPHEN 325 MG TAB PO PRN (15:05)
[2018-04-13] MEDS ORDERED: DOCUSATE SODIUM 100 MG GELCAP PO PRN (15:05)
--- NOTE | 2018-04-13 15:13 | NUR ---
BED RECEIVED 112A, TOMASA ALEJO INFORMED.
[2018-04-13 15:14] VITALS: BP 138/92
[2018-04-13 15:21] LABS: ALBUMIN 3.9 g/dL (3.4-5.0)
--- NOTE | 2018-04-13 15:25 | NUR ---
TRANSFERRED PATIENT FROM ED-6 TO [facility] 112-A REMAINED ON BIPAP TO MASK OXYGEN TO BIPAP VIA E-TANKS WITH ADEQUATE LEVELS SATURATION 99% HR 113 TOLERATED TRANSFER WELL WITHOUT INCIDENT
[2018-04-13] MEDS ORDERED: LEVOFLOXACIN 750 MG/D5W PREMIX 150 ML IV ONE (15:35)
--- NOTE | 2018-04-13 15:35 | NUR ---
RECEIVED PT ON UNIT VIA [employer] [facility], PT IS AAOX4, PT ABLE TO TRANSFER SELF FROM GURNEY TO BED, PT IS ON BI PAP AT THIS TIME, PT HAS IV ON HIS LEFT AC, PATENT, INTACT, FLUSHING WELL, SKIN IS INTACT, NO S/S OF DISTRESS OR DISCOMFORT NOTED AT THIS TIME, ORIENTED PT TO ROOM, DISCUSSED PLAN OF CARE WITH PT AND PT'S GIRLFRIEND, THEY BOTH VERBALIZED UNDERSTANDING, SAFETY/FALL PRECAUTIONS ARE IN PLACE, CALL LIGHT IS WITHIN REACH, WILL CONTINUE TO MONITOR.
--- NOTE | 2018-04-13 15:37 | NUR ---
Patient will be admitted to care of DR WHITE. Admited to TELE. Will go to room 112A. Belongings list completed. Report to ARTEM ALEJO.
[2018-04-13 15:45] VITALS: BP 126/89
[2018-04-13 15:49] LABS: BARBITURATE, URINE NEG. ng/ml (NEG <=200); BENZODIAZEPINE, URINE NEG. ng/mL (NEG <=200); CANNABINOID, URINE POS. ng/mL (NEG <=50); COCAINE, URINE NEG. ng/mL (NEG <=300); OPIATE, URINE NEG. ng/mL (NEG <=2000); PHENCYCLIDINE SCREEN,URINE NEG. ng/mL (NEG <=25)
[2018-04-13 16:01] LABS: CHOL/HDL RATIO 2.1 (1-4.5); MAGNESIUM 1.9 mg/dL (1.8-2.4); PHOSPHORUS 4.1 mg/dL (2.5-4.9); THYROID STIMULATING HORMONE 1.18 uIU/mL (0.34-3.74)
[2018-04-13] MEDS: NACL 0.9% 1,000 ML IV SCH (16:01)
[2018-04-13] MEDS ORDERED: FAMOTIDINE 20 MG TAB PO SCH (17:00)
[2018-04-13] MEDS ORDERED: MONTELUKAST SODIUM 10 MG TAB PO SCH (17:00)
[2018-04-13] MEDS ORDERED: LORATADINE 10 MG TAB PO SCH (17:00)
--- NOTE | 2018-04-13 19:20 | NUR ---
ENDORSED PT TO DESK LIEUTENANT NURSE FOR CONTINUITY OF CARE. PT IS OFF THE BI PAP, PT STABLE AT THIS TIME. FAMILY MEMBER IS AT BEDSIDE.
--- NOTE | 2018-04-13 19:22 | NUR ---
RECEIVED REPORT FROM DAY SHIFT NURSE. PT LYING IN BED, AAOX4. NO C/O SOB. ON ROOM AIR. NO C/O PAIN. GIRLFRIEND AT BEDSIDE. IV TO LEFT AC #20G, NS AT 110 ML/HR INFUSING WELL. BI PAP MACHINE AT BED SIDE. DISCUSSED PLAN OF CARE, PT VERBALIZED UNDERSTANDING. SAFETY PRECAUTION IN PLACE. CALL LIGHT WITHIN REACH.
[2018-04-13] MEDS: ALBUTEROL SULFATE/IPRATROPIU 3 ML SOL IH PRN (19:25)
[2018-04-13] MEDS: BUDESONIDE 0.5 MG/2 ML NEBU INH SCH (19:25)
--- NOTE | 2018-04-13 19:37 | NUR ---
RECEIVED REPORT THAT PT WAS OFF OF BIPAP. CAME IN ROOM FOR PT ASSESSMENT AND PT WAS ON ROOM AIR WITH SPO2 OF 98%. WILL KEEP PT ON ROOM AIR. WILL CONTINUE TO MONITOR.
[2018-04-13 20:00] VITALS: BP 117/80
--- NOTE | 2018-04-13 21:00 | NUR ---
PT RESTING IN BED WITH EYES CLOSED. RESP EVEN AND UNLABORED. NO S/S OF PAIN OR DISCOMFORT. CALL LIGHT WITHIN REACH.
--- NOTE | 2018-04-13 22:28 | NUR ---
PT ASKED FOR SNACK. SNACK PROVIDED. NEEDS MET AT THIS TIME.
--- NOTE | 2018-04-13 23:00 | NUR ---
PT REFUSED SCDS. PT STATED HE DOESN'T NEED IT. EXPLAINED TO PT THE BENEFITS OF SCDS. PT STILL REFUSED.
[2018-04-13] MEDS: methylPREDNISolone SS 125 MG/2 ML VIAL IVP SCH (23:51)
[2018-04-14] VITALS: BP 116/68
--- NOTE | 2018-04-14 00:45 | NUR ---
PT IN BED, WATCHING TV. NO C/O PAIN. NO RESP DISTRESS NOTED.
[2018-04-14] MEDS: ALBUTEROL SULFATE/IPRATROPIU 3 ML SOL IH PRN (01:17)
--- NOTE | 2018-04-14 02:22 | NUR ---
PT SLEEPING. NO S/S OF RESP DISTRESS. NO S/S OF PAIN.
[2018-04-14] MEDS: NACL 0.9% 1,000 ML IV SCH ×2 (03:30→09:16)
[2018-04-14 04:00] VITALS: BP 124/81
--- NOTE | 2018-04-14 04:45 | NUR ---
PT SLEEPING BUT EASILY AROUSABLE. NO S/S OF SOB OR PAIN. IVF INFUSING WELL.
--- NOTE | 2018-04-14 06:22 | NUR ---
PT IN BED, AWAKE. NO C/O SOB OR PAIN. RESP EVEN AND UNLABORED.
[2018-04-14] MEDS: BUDESONIDE 0.5 MG/2 ML NEBU INH SCH (06:52)
--- NOTE | 2018-04-14 07:25 | NUR ---
RECEIVED REPORT FROM [facility] SHIFT NURSE, PT IS RESTING IN BED, EASILY AWAKEN, AAOX4, PT IS AMBULATORY, PT HAS BI PAP MACHINE AT BEDSIDE BUT HE IS NOT USING IT AT THIS TIME, PT HAS IV ON HIS LEFT AC, PATENT, INTACT, FLUSHING WELL, SKIN IS INTACT, NO S/S OF DISTRESS OR DISCOMFORT NOTED AT THIS TIME, DISCUSSED PLAN OF CARE WITH PT, PT VERBALIZED UNDERSTANDING, SAFETY/FALL PRECAUTIONS ARE IN PLACE, CALL LIGHT IS WITHIN REACH, WILL CONTINUE TO MONITOR.
[2018-04-14 07:51] LABS: BASOPHILS % (AUTO) 0.1 % (0.0-2.0); HEMATOCRIT 41.8 % (36-52); HEMOGLOBIN 13.8 g/dL (12.0-18.0); LYMPHOCYTES # (AUTO) 0.6 K/uL (2.0-11.5); LYMPHOCYTES % (AUTO) 4.6 % (20.5-51.1); MEAN CORPUSCULAR HEMOGLOBIN 30 pg (27-31); MEAN CORPUSCULAR HGB CONC 33 g/dL (33-37); MEAN CORPUSCULAR VOLUME 90.5 fL (80-94); MONOCYTES # (AUTO) 0.6 K/uL (0.8-1.0); MONOCYTES % (AUTO) 4.2 % (1.7-9.3); NEUTROPHILS # (AUTO) 12.4 K/uL (1.8-7.7); NEUTROPHILS % (AUTO) 91.1 % (42.2-75.2); PLATELET COUNT (AUTO) 328 K/uL (140-450); RED BLOOD CELL COUNT(AUTO) 4.62 MIL/uL (4.20-6.10); RED CELL DISTRIBUTION WIDTH 15.1 % (11.6-13.7); WHITE BLOOD COUNT (AUTO) 13.6 K/uL (4.8-10.8)
[2018-04-14 08:00] VITALS: BP 134/82
--- NOTE | 2018-04-14 08:09 | NUR ---
PATIENT HAS BEEN SCREENED AND CATEGORIZED MODERATE NUTRITION RISK. PATIENT WILL BE SEEN WITHIN 3-5 DAYS OF ADMISSION. 04/16/18 04/18/[address]
[2018-04-14] MEDS: methylPREDNISolone SS 125 MG/2 ML VIAL IVP SCH (08:28)
--- NOTE | 2018-04-14 08:28 | NUR ---
DUE MEDICATIONS GIVEN. PT TOLERATED WELL, NO S/S OF DISTRESS NOTED, CALL LIGHT IS WITHIN REACH, WILL CONTINUE TO MONITOR.
[2018-04-14] MEDS ORDERED: BECL10.62 IH (08:49)
[2018-04-14] MEDS ORDERED: ALBU3SOL83 IH (08:49)
[2018-04-14] MEDS ORDERED: MONT10TA35 PO (08:50)
[2018-04-14 08:59] LABS: ANION GAP 15.2 (8-16); CARBON DIOXIDE 23.2 mmol/L (21-32); CREATININE 1.2 mg/dL (0.7-1.3); POTASSIUM 4.4 mmol/L (3.5-5.1)
[2018-04-14] MEDS ORDERED: LORATADINE 10 MG TAB PO SCH (09:00)
[2018-04-14] MEDS ORDERED: FAMOTIDINE 20 MG TAB PO SCH (09:00)
[2018-04-14] MEDS ORDERED: SERTRALINE 50 MG TAB PO SCH (09:00)
[2018-04-14] MEDS ORDERED: ATORVASTATIN 20 MG TAB PO SCH (09:00)
[2018-04-14 10:25] VITALS: BP 134/82
--- NOTE | 2018-04-14 11:00 | NUR ---
DISCHARGE INSTRUCTIONS GIVEN, PRESCRIPTIONS GIVEN. PT STATED HIS RIDE WOULD NOT BE ABLE TO PICK HIM UP UNTIL 1300. I LET THE PATIENT KNOW THAT WAS FINE.
--- NOTE | 2018-04-14 11:05 | NUR ---
SPOKE WITH BENITO FROM [facility] GROUP. SHE SAID TO FAX REVIEWS TO HER AT [phone] PHONE BENITO [phone].
[2018-04-14 12:00] VITALS: BP 133/75
--- NOTE | 2018-04-14 13:15 | NUR ---
IV REMOVED, CATHETER TIP INTACT, ID WRIST BAND REMOVED. PT STABLE UPON DISCHARGE.
[2018-04-15] MEDS ORDERED: methylPREDNISolone SS 40 MG/ML VIAL IVP SCH
[2018-04-15 06:21] LABS: T4 (THYROXINE) 5.1 ug/dL (4.5-12.0)
== END 2018-04-14 13:15 | disposition home or self-care (01) | DRG 189 ==
LOC: MED 12:54 → MTU 15:04
PROVIDERS: ADMIT General Practice; ATTEND General Practice
PROC: 5A09357 Assistance with Respiratory Ventilation, Less than 24 Consecutive Hours, Continuous Positive Airway Pressure (ICD-10-PCS; principal; 2018-04-13)
DX: J96.02 Acute respiratory failure with hypercapnia (principal); J45.901 Unspecified asthma with (acute) exacerbation; J44.1 Chronic obstructive pulmonary disease with (acute) exacerbation; R65.10 Systemic inflammatory response syndrome (SIRS) of non-infectious origin without acute organ dysfunction; E87.0 Hyperosmolality and hypernatremia; F32.9 Major depressive disorder, single episode, unspecified; J33.9 Nasal polyp, unspecified; T38.0X5A Adverse effect of glucocorticoids and synthetic analogues, initial encounter; F14.90 Cocaine use, unspecified, uncomplicated; F12.90 Cannabis use, unspecified, uncomplicated; Z88.6 Allergy status to analgesic agent; Z79.899 Other long term (current) drug therapy; Z79.51 Long term (current) use of inhaled steroids; Z79.52 Long term (current) use of systemic steroids; Z90.81 Acquired absence of spleen; Z80.3 Family history of malignant neoplasm of breast; Y92.89 Other specified places as the place of occurrence of the external cause
CPT/HCPCS: 36415; 36600; 71045; 80048; 80053; 80305; 81001; 82550; 82803; 83036; 83605; 83735; 83880; 84100; 84436; 84443; 84479; 84484; 85025; 85379; 85610; 85730; 87040; 87081; 87086; 93005; 94640; 94660; 96365; 96372; 96375; 99291; J1100; J1956; J2060; J2930; J3475; J7030; J7613; J7620; J7626; J7644; Q0092

== ENCOUNTER 2018-07-09 19:12 | Emergency (ER) | payer OTHER ==
[~2018-07-09] VITALS: Ht 172.7 cm; Wt 88.0 kg
[~2018-07-09 19:12] MED LIST changes: -BECL0.0464 INH; +BECL10.62 IH; -FORM1 IH; +MONT10TA35 PO
[2018-07-09 19:23] VITALS: BP 158/89
--- NOTE | 2018-07-09 19:25 | NUR ---
Patient being evaluated by physician at bedside.
--- NOTE | 2018-07-09 19:29 | NUR ---
53/M CAME IN WITH FAMILY/FRIEND, C/O ASTHMA EXACERBATION, X1 HR. REPORTS TAKING INHALER WITH NO RELIEF. PT REPORTS SOB. PT DENIES CP, N/V OR ANY PAIN. AOX4, AMBULATORY, RR EVEN, LABORED, SHALLOW AND MILDLY TACHYPNIC. PT PLACED ON MONITOR, SPO2 98% ON O2 2L NC. RT CALLED FOR TREATMENT. ER MD AT BEDSIDE. HX ASTHMA, HTN.
[2018-07-09] MEDS ORDERED: methylPREDNISolone SS 125 MG in WATER STERILE 2 ML IV ONE (19:30)
[2018-07-09] MEDS ORDERED: NACL 0.9% 1,000 ML IV ONE (19:30)
[2018-07-09] MEDS ORDERED: ALBUTEROL SULFATE/IPRATROPIU 3 ML SOL IH ONE ×2 (19:30→20:25)
[2018-07-09] MEDS ORDERED: methylPREDNISolone SS 125 MG/2 ML VIAL ONE (19:43)
[2018-07-09] MEDS ORDERED: ALBUTEROL 0.083% 2.5 MG/3 ML NEBU INH ONE (20:50)
[2018-07-09 21:52] VITALS: BP 128/82
--- NOTE | 2018-07-09 21:52 | NUR ---
Patient discharged with v/s stable. Written and verbal after care instructions given and explained. Patient alert, oriented and verbalized understanding of instructions. Ambulatory with steady gait. All questions addressed prior to discharge. ID band removed. Patient advised to follow up with PMD. Rx of ALBUTEROL INHALER, ALBUTEROL NEBULIZER, PREDNISONE given. Patient educated on indication of medication including possible reaction and side effects. Opportunity to ask questions provided and answered.
== END 2018-07-09 21:52 | disposition home or self-care (01) ==
LOC: MED 19:12
DX: J45.901 Unspecified asthma with (acute) exacerbation (principal); Z79.899 Other long term (current) drug therapy; Z88.6 Allergy status to analgesic agent
CPT/HCPCS: 71045; 94640; 94760; 96361; 96374; 99285; J2930; J7030; J7613; J7620; 99283; 99284

== ENCOUNTER 2018-07-22 02:35 | Emergency (ER) | payer OTHER ==
[~2018-07-22] VITALS: Ht 172.7 cm; Wt 88.0 kg
[2018-07-22 02:51] VITALS: BP 144/95
--- NOTE | 2018-07-22 02:57 | NUR ---
PT PRESENTS TO ED WITH C/O LOWER BACK PAIN X 0130 THIS MORNING. PER PT "WHENEVER I MOVE A CERTAIN WAY I GET A SHARP PAIN IN MY LOWER BACK". PT DENIES INJURY, FALL, OR TRAUMA TO SITE. PT PLACED INTO BED, PENDING MD WALKER. ALL MONITORS PLACED ON PT. PMH--ASTHMA RX--ALBUTEROL INHALER
[2018-07-22] MEDS ORDERED: NACL 0.9% 1,000 ML IV ONE (03:00)
[2018-07-22] MEDS ORDERED: MORPHINE SULFATE 4 MG/ML SYR IVP ONE (03:05)
[2018-07-22 04:19] VITALS: BP 140/90
--- NOTE | 2018-07-22 04:20 | NUR ---
Patient discharged with v/s stable. Written and verbal after care instructions given and explained. Patient alert, oriented and verbalized understanding of instructions. Ambulatory with steady gait. All questions addressed prior to discharge. ID band removed. Patient advised to follow up with PMD. Rx of NORCO 5MG-325MG given. Patient educated on indication of medication including possible reaction and side effects. Opportunity to ask questions provided and answered.
== END 2018-07-22 04:20 | disposition home or self-care (01) ==
LOC: MED 02:35
DX: M54.5 Low back pain (principal); R06.02 Shortness of breath; J45.909 Unspecified asthma, uncomplicated; Z88.8 Allergy status to other drugs, medicaments and biological substances; Z79.899 Other long term (current) drug therapy
CPT/HCPCS: 96374; 99283; J2270; J7030

== ENCOUNTER 2018-09-13 15:27 | Inpatient (IN) | payer OTHER ==
[~2018-09-13] VITALS: Ht 172.7 cm; Wt 97.1 kg
[2018-09-13 15:27] VITALS: BP_SYST 127; BP_SYST 145; BP_DIAS 129; BP_DIAS 88
--- NOTE | 2018-09-13 15:28 | NUR ---
PT BIBA ALS TO BED 7
[2018-09-13 15:34] VITALS: BP 145/129
[2018-09-13] MEDS ORDERED: ALBUTEROL SULFATE/IPRATROPIU 3 ML SOL IH ONE (15:55)
[2018-09-13] MEDS ORDERED: FAMOTIDINE 20 MG/2 ML VIAL IVP ONE (15:55)
[2018-09-13] MEDS ORDERED: MAG SULF 2000 MG/WATER PREMIX 50 ML IV ONE (15:55)
[2018-09-13] MEDS ORDERED: methylPREDNISolone SS 125 MG/2 ML VIAL IVP ONE (15:55)
--- NOTE | 2018-09-13 15:57 | NUR ---
PT C/O SOB SINCE AM TODAY, TOOK 5 TX OF ALBUTEROL NEBULIZER, 89-91% RA AT HOME, EMS PLACED ON CPAP, FELT RELIEF AND 02 SAT AT 97% IN ED. VSS; PATIENT POSITIONED FOR COMFORT; HOB ELEVATED; BEDRAILS UP X1; BED DOWN. ER MD MADE AWARE OF PT STATUS.
--- NOTE | 2018-09-13 16:15 | NUR ---
XRAY AT BEDSIDE
[2018-09-13 16:34] LABS: BASOPHILS % (AUTO) 0.5 % (0.0-2.0); EOSINOPHILS # (AUTO) 0.1 K/uL (0-0.4); EOSINOPHILS % (AUTO) 0.6 % (0.0-4.0); HEMATOCRIT 45.9 % (36-52); LYMPHOCYTES # (AUTO) 1.2 K/uL (2.0-11.5); LYMPHOCYTES % (AUTO) 11.6 % (20.5-51.1); MEAN CORPUSCULAR HEMOGLOBIN 29 pg (27-31); MEAN CORPUSCULAR HGB CONC 33 g/dL (33-37); MEAN CORPUSCULAR VOLUME 90.2 fL (80-94); MONOCYTES # (AUTO) 1.1 K/uL (0.8-1.0); MONOCYTES % (AUTO) 11.3 % (1.7-9.3); NEUTROPHILS # (AUTO) 7.6 K/uL (1.8-7.7); PLATELET COUNT (AUTO) 247 K/uL (140-450); RED BLOOD CELL COUNT(AUTO) 5.09 MIL/uL (4.20-6.10); RED CELL DISTRIBUTION WIDTH 16.6 % (11.6-13.7); WHITE BLOOD COUNT (AUTO) 10.1 K/uL (4.8-10.8)
--- NOTE | 2018-09-13 16:35 | NUR ---
FLU SWAB COLLECTED AND SENT TO LAB.
[2018-09-13 16:38] LABS: PROTHROMBIN TIME 9.9 secs (10.8-13.4)
[2018-09-13 16:45] LABS: ANION GAP 11.1 (8-16); CARBON DIOXIDE 27.8 mmol/L (21-32); CREATININE 0.9 mg/dL (0.7-1.3); POTASSIUM 3.9 mmol/L (3.5-5.1)
[2018-09-13 16:54] LABS: ALBUMIN 3.7 g/dL (3.4-5.0); TOTAL BILIRUBIN 0.5 mg/dL (0.0-1.0)
[2018-09-13 17:07] VITALS: BP 155/47
--- NOTE | 2018-09-13 18:45 | NUR ---
TRANSFERRED PT FROM ED TO FLOOR ON ROOM AIR BECAUSE PT SAID HE WANTS TO TAKE IT OFF AND HE DOESNT NEED TO BE ON CPAP ANYMORE. TRANSFERRED WITH NO INCIDENT WITH NURSE AND EMT. PT USED RESTROOM BUT GOT SOB. PUT PATIENT ON BIPAP WITH CHARTED SETTINGS PT HAD INCREASED WORK OF BREATHING. MD MACK AWARE AND PUT NEW ORDERS FOR BIPAP. PT IS MORE RELAXED AND WAS TALKING ON PHONE COUPLE MINUTES AFTER. BIPAP CONNECTED TO RED OUTLET. ALARMS AUDIBLE. WILL CONTINUE TO MONITOR.
--- NOTE | 2018-09-13 18:45 | NUR ---
Patient will be admitted to care of DR. WHITE. Admited to TELE. Will go to room 112B. Belongings list completed. Report to BENITO ALEJO.
--- NOTE | 2018-09-13 19:00 | NUR ---
RECEIVED REPORT FROM DAY SHIFT NURSE BNEITO-RN AT BEDSIDE. PT RESTING IN BED WITH CPAP MACHINE, AOX4, WITH LEFT AC #20G. DISCUSSED PLAN OF CARE AND PT VERBALIZED UNDERSTANDING. VITAL SIGNS TAKEN AND MRSA SWAB COLLECTED. NO S/S OF RESPIRATORY DISTRESS OR DISCOMFORT NOTED AT THIS TIME. BED IN LOWEST POSITION, BED BREAKS ON, BOTH SIDE RAILS UP. BEDSIDE TABLE AND CALL LIGHT ARE WITHIN REACH. WILL CONTINUE TO MONITOR.
[2018-09-13] MEDS ORDERED: ACETAMINOPHEN 325 MG TAB PO PRN (19:10)
[2018-09-13] MEDS ORDERED: HYDROcodone/APAP 7.5/325 MG 1 TAB PO PRN (19:10)
[2018-09-13] MEDS ORDERED: ONDANSETRON 4 MG/2 ML VIAL IM/IVP PRN (19:10)
[2018-09-13] MEDS ORDERED: DOCUSATE SODIUM 100 MG GELCAP PO PRN (19:10)
[2018-09-13 19:20] LABS: APPEARANCE,URINE CLEAR (CLEAR); BILIRUBIN,URINE NEGATIVE (NEGATIVE); BLOOD, URINE NEGATIVE (NEGATIVE); COLOR,URINE YELLOW (YELLOW); LEUKOCYTE ESTERASE ,URINE NEGATIVE (NEGATIVE); NITRITE, URINE NEGATIVE (NEGATIVE); UGLUCOSE NEGATIVE (NEGATIVE)
[2018-09-13 19:28] LABS: BARBITURATE, URINE NEG. ng/ml (NEG <=200); BENZODIAZEPINE, URINE NEG. ng/mL (NEG <=200); CANNABINOID, URINE POS. ng/mL (NEG <=50); COCAINE, URINE NEG. ng/mL (NEG <=300); OPIATE, URINE NEG. ng/mL (NEG <=2000); PHENCYCLIDINE SCREEN,URINE NEG. ng/mL (NEG <=25)
[2018-09-13] MEDS ORDERED: BUDE1AER IH (19:58)
[2018-09-13 20:00] VITALS: BP 136/83
[2018-09-13 20:01] LABS: CHOL/HDL RATIO 2.1 (1-4.5); FREE T4 (FREE THYROXINE) 0.79 ng/dL (0.76-1.46); THYROID STIMULATING HORMONE 0.97 uIU/mL (0.34-3.74)
--- NOTE | 2018-09-13 20:45 | NUR ---
PT C/O SOB, CALLED RT SHARON AND IN PT ROOM GIVING BREATHING TX. PT TOLERATING WELL. WILL CONTINUE TO MONITOR.
[2018-09-13] MEDS: ALBUTEROL SULFATE/IPRATROPIU 3 ML SOL IH PRN (20:49)
[2018-09-13] MEDS: methylPREDNISolone SS 125 MG/2 ML VIAL IVP SCH (20:55)
[2018-09-13] MEDS: NACL 0.9% 1,000 ML IV SCH (20:55)
--- NOTE | 2018-09-13 20:59 | NUR ---
SCHEDULED MEDICATION GIVEN AND TOLERATED WELL. NO S/S OF RESPIRATORY DISTRESS OR DISCOMFORT NOTED AT THIS TIME. WILL CONTINUE TO MONITOR.
--- NOTE | 2018-09-13 22:00 | NUR ---
PT CONTINUES TO SLEEP IN BED. NO S/S OF RESPIRATORY DISTRESS OR DISCOMFORT NOTED AT THIS TIME. WILL CONTINUE TO MONITOR.
[2018-09-14] VITALS: BP_SYST 128; BP_SYST 138; BP_DIAS 95; BP_DIAS 97
--- NOTE | 2018-09-14 | NUR ---
VITAL SIGNS TAKEN AND TOLERATED WELL. NO S/S OF RESPIRATORY DISTRESS OR DISCOMFORT NOTED AT THIS TIME. WILL CONTINUE TO MONITOR.
[2018-09-14] MEDS: ALBUTEROL SULFATE/IPRATROPIU 3 ML SOL IH PRN ×4 (01:16→23:16)
--- NOTE | 2018-09-14 02:00 | NUR ---
PT SLEEPING IN BED. NO S/S OF RESPIRATORY DISTRESS OR DISCOMFORT AT THIS TIME. WILL CONTINUE TO MONITOR.
[2018-09-14 04:00] VITALS: BP 128/97
--- NOTE | 2018-09-14 04:00 | NUR ---
VITAL SIGNS TAKEN AND TOLERATED WELL. NO S/S OF RESPIRATORY DISTRESS OR DISCOMFORT AT THIS TIME. WILL CONTINUE TO MONITOR.
[2018-09-14] MEDS: methylPREDNISolone SS 125 MG/2 ML VIAL IVP SCH ×3 (04:15→21:05)
--- NOTE | 2018-09-14 04:15 | NUR ---
SCHEDULED MEDICATION GIVEN AND TOLERATED WELL. PT REQUESTING RT FOR BREATHING TREATMENT. CALLED RT SHARON AND SHE SAID SHE WOULD BE ON HER WAY. NO S/S OF RESPIRATORY DISTRESS OR DISCOMFORT AT THIS TIME. WILL CONTINUE TO MONITOR.
--- NOTE | 2018-09-14 06:00 | NUR ---
PT CONTINUES TO SLEEP IN BED. NO S/S OF RESPIRATORY DISTRESS OR DISCOMFORT AT THIS TIME. WILL CONTINUE TO MONITOR.
[2018-09-14] MEDS: ALBUTEROL SULFATE/IPRATROPIU 3 ML SOL IH SCH ×3 (06:33→19:15)
--- NOTE | 2018-09-14 06:33 | NUR ---
REC'D PT ON [employer]ES[employer] V60 BIPAP SETTINGS 14\7 RR 18 FIO2 30% ALARMS ON AND AUDIBLE AND AMBU BAG IS AT SIDE OF BIPAP AND BIPAP IS PLUGGED INTO RED OUTLET, I\L TXS GIVEN WITH DUONEB 3ML AND PULMICORT 0.5MG WITH NO ADVERSE REACTION POST TX B\S ARE BILATERALLY I\E WHEEZING, PT IS WEARING LARGE FACE MASK AND SKIN INTEGRITY IS INTACT. PT OFF BIPAP NOW IS PLACED ON 3LNC
[2018-09-14] MEDS: BUDESONIDE 0.5 MG/2 ML NEBU INH SCH ×2 (06:42→19:30)
[2018-09-14 07:13] LABS: BASOPHILS # (AUTO) 0.1 K/uL (0.00-0.22); BASOPHILS % (AUTO) 0.5 % (0.0-2.0); HEMATOCRIT 44.7 % (36-52); HEMOGLOBIN 14.3 g/dL (12.0-18.0); LYMPHOCYTES # (AUTO) 1.2 K/uL (2.0-11.5); LYMPHOCYTES % (AUTO) 9.7 % (20.5-51.1); MEAN CORPUSCULAR HEMOGLOBIN 29 pg (27-31); MEAN CORPUSCULAR HGB CONC 32 g/dL (33-37); MEAN CORPUSCULAR VOLUME 90.4 fL (80-94); MONOCYTES # (AUTO) 0.8 K/uL (0.8-1.0); NEUTROPHILS # (AUTO) 10.5 K/uL (1.8-7.7); NEUTROPHILS % (AUTO) 83.8 % (42.2-75.2); PLATELET COUNT (AUTO) 249 K/uL (140-450); RED BLOOD CELL COUNT(AUTO) 4.94 MIL/uL (4.20-6.10); RED CELL DISTRIBUTION WIDTH 16.5 % (11.6-13.7); WHITE BLOOD COUNT (AUTO) 12.5 K/uL (4.8-10.8)
--- NOTE | 2018-09-14 07:14 | NUR ---
ENDORSED PT CARE TO DAY SHIFT NURSE ANDREZ FOR CONTINUITY OF CARE. Addendum: 09/14/18 at 0731 by Damaris Carias RN DISREGARD NOTE
[2018-09-14 07:24] LABS: ANION GAP 15.1 (8-16); CARBON DIOXIDE 24.6 mmol/L (21-32); POTASSIUM 4.7 mmol/L (3.5-5.1)
--- NOTE | 2018-09-14 07:24 | NUR ---
ENDORSED PT CARE TO DAY SHIFT NURSE AMARJIT FOR CONTINUITY OF CARE.
--- NOTE | 2018-09-14 07:25 | NUR ---
RECEIVED REPORT FROM FLASH DRIER OPERATOR NURSE. PATIENT SITTING IN BED COMFORTABLY. NO DISTRESS NOTED. DENIES ANY PAIN. IV SITE INTACT, PATENT, AND INFUSING IVF PER MD ORDERS. RESPIRATIONS EVEN, UNLABORED, ON O2 3L/MIN VIA NC WITH O2 SAT AT 96%. ABDOMEN SOFT, NON-DISTENDED. LUNGS WHEEZING THROUGHOUT ALL LOBES. SAFETY MEASURES IN PLACE, CALL LIGHT WITHIN REACH. WILL CONTINUE TO MONITOR.
[2018-09-14 07:27] LABS: MAGNESIUM 2.1 mg/dL (1.8-2.4); PHOSPHORUS 2.4 mg/dL (2.5-4.9)
[2018-09-14 07:49] LABS: CHOL/HDL RATIO 2.1 (1-4.5)
[2018-09-14 08:00] VITALS: BP 124/81
--- NOTE | 2018-09-14 08:07 | NUR ---
PATIENT HAS BEEN SCREENED AND CATEGORIZED HIGH NUTRITION RISK. PATIENT WILL BE SEEN WITHIN 1-2 DAYS OF ADMISSION. 09/14/18-09/15/[address]
[2018-09-14] MEDS: FAMOTIDINE 20 MG TAB PO SCH (08:51)
[2018-09-14] MEDS: LORATADINE 10 MG TAB PO SCH (08:51)
--- NOTE | 2018-09-14 08:52 | NUR ---
PATIENT SITTING IN BED WITH FAMILY MEMBER AT BEDSIDE. DR. GOVEA AT BEDSIDE REVIEWING PLAN OF CARE WITH PATIENT. SCHEDULED MEDICATIONS DUE GIVEN. WILL CONTINUE TO MONITOR.
[2018-09-14] MEDS ORDERED: PNEUMOCOCCAL VACCINE 23 MCG/0.5 ML VIAL IMVAC SCH (09:00)
[2018-09-14] MEDS: NACL 0.9% 1,000 ML IV SCH (12:22)
--- NOTE | 2018-09-14 12:28 | NUR ---
PATIENT SITTING IN BED WITH LUNCH TRAY IN FRONT. NO DISTRESS NOTED. DENIES ANY PAIN. SCHEDULED MEDICATIONS DUE GIVEN. WILL CONTINUE TO MONITOR.
--- NOTE | 2018-09-14 14:32 | NUR ---
09/14/18 RD INITIAL ASSESSMENT COMPLETED PLEASE REFER TO NUTRITION ASSESSMENT UNDER CARE ACTIVITY FOR ESTIMATED NUTRITIONAL NEEDS. 1. RECOMMEND CARDIAC DIET TOLERATED 2. RD PROVIDED NUTRITION EDUCATION FOR LOWERING CHOLESTEROL. PT ACCEPTED EDUCATION 3. RD TO FOLLOW-UP 3-5 DAYS, MODERATE RISK MADELAINE LOPES, RD
[2018-09-14] MEDS ORDERED: MONTELUKAST SODIUM 10 MG TAB PO SCH (17:00)
--- NOTE | 2018-09-14 19:32 | NUR ---
RECEIVED REPORT FROM DAY SHIFT NURSE. AAOX4. NO C/O PAIN. ON O2 AT 3L/MIN VIA NC. NO RESP DISTRESS NOTED. SKIN INTACT. IV TO LEFT AC#20G, PATENT AND INTACT. PT'S AT BEDSIDE. DISCUSSED PLAN OF CARE, PT VERBALIZED UNDERSTANDING. SAFETY PRECAUTION IN PLACE. CALL LIGHT WITHIN REACH.
[2018-09-14] MEDS ORDERED: ATORVASTATIN 20 MG TAB PO SCH (21:00)
--- NOTE | 2018-09-14 21:05 | NUR ---
DUE MEDS GIVEN. PT TOLERATED WELL. ALL NEEDS MET AT THIS TIME. CALL LIGHT WITHIN REACH.
--- NOTE | 2018-09-14 23:15 | NUR ---
DR. KUMAR MADE AWARE OF PT'S XRAY OF ABDOMEN RESULT. ORDERED TO START FEEDING TUBE OSMOLITE 1.2 ( PER PT'S RECORD FROM [facility], PT IS ON OSMOLITE 1.2) AT 30 ML/HR, H20 FLUSH 100 CC EVERY 4 HRS. Addendum: 09/14/18 at 2349 by John Quinones RN WRONG PATIENT
--- NOTE | 2018-09-14 23:33 | NUR ---
PT IN BED HAVING BREATHING TREATMENT. DENIES PAIN. IVF INFUSING WELL.
[2018-09-15] VITALS: BP 100/65
--- NOTE | 2018-09-15 02:00 | NUR ---
PT SLEEPING BUT EASILY AROUSABLE. NO S/S OF SOB. NO S/S OF PAIN OR DISCOMFORT.
[2018-09-15] MEDS: NACL 0.9% 1,000 ML IV SCH (02:20)
[2018-09-15] MEDS: methylPREDNISolone SS 125 MG/2 ML VIAL IVP SCH (04:56)
--- NOTE | 2018-09-15 04:57 | NUR ---
PT LYING IN BED, AWAKE. DENIES PAIN. NO SOB NOTED. DUE MEDS GIVEN.
[2018-09-15 06:06] LABS: HEMATOCRIT 43.6 % (36-52); MEAN CORPUSCULAR HEMOGLOBIN 29 pg (27-31); MEAN CORPUSCULAR HGB CONC 32 g/dL (33-37); MEAN CORPUSCULAR VOLUME 90.6 fL (80-94); PLATELET COUNT (AUTO) 258 K/uL (140-450); RED BLOOD CELL COUNT(AUTO) 4.82 MIL/uL (4.20-6.10); RED CELL DISTRIBUTION WIDTH 16.8 % (11.6-13.7); WHITE BLOOD COUNT (AUTO) 23.1 K/uL (4.8-10.8)
[2018-09-15 06:16] LABS: T4 (THYROXINE) 5.5 ug/dL (4.5-12.0)
[2018-09-15 06:50] LABS: ALBUMIN 3.3 g/dL (3.4-5.0); ANION GAP 9.7 (8-16); CARBON DIOXIDE 26.9 mmol/L (21-32); CREATININE 0.9 mg/dL (0.7-1.3); MAGNESIUM 2.3 mg/dL (1.8-2.4); PHOSPHORUS 3.2 mg/dL (2.5-4.9); POTASSIUM 4.6 mmol/L (3.5-5.1); TOTAL BILIRUBIN 0.5 mg/dL (0.0-1.0)
[2018-09-15 06:53] LABS: EOSINOPHILS % (MANUAL) 5 % (0-4); LYMPHOCYTES % (MANUAL) 8 % (20-46); MONOCYTES % (MANUAL) 3 % (5-12)
--- NOTE | 2018-09-15 07:05 | NUR ---
ENDORSED PT TO DAY SHIFT NURSE. PT IN STABLE CONDITION.
--- NOTE | 2018-09-15 07:07 | NUR ---
RECEIVED BEDSIDE REPORT FROM SOLID GLASS ROD DOWEL MACHINE OPERATOR NURSE. AOX4. DENIES PAIN. ON O2 AT 3L/MIN VIA NC. WHEEZING AUSCULTATED ON LUNGS. NO RESP DISTRESS NOTED, SPO2 98%. SKIN INTACT, DRY AND CLEAN. IV TO LEFT AC 20G, PATENT AND INTACT, INFUSING PER MD ORDER. IV SITE CLEAN AND DRY. ABLE TO AMBULATE WITH STEADY GAIT. DISCUSSED PLAN OF CARE WITH PATIENT, PATIENT VERBALIZED UNDERSTANDING. INSTRUCTED PATIENT ON USING THE CALL LIGHT FOR ANY ASSISTANCE. BED IN LOW POSITION, CALL LIGHT WITHIN REACH.
[2018-09-15] MEDS: ALBUTEROL SULFATE/IPRATROPIU 3 ML SOL IH SCH (07:10)
[2018-09-15] MEDS: BUDESONIDE 0.5 MG/2 ML NEBU INH SCH (07:21)
[2018-09-15 08:00] VITALS: BP 117/75
[2018-09-15] MEDS: FAMOTIDINE 20 MG TAB PO SCH (08:53)
[2018-09-15] MEDS: LORATADINE 10 MG TAB PO SCH (08:54)
--- NOTE | 2018-09-15 08:59 | NUR ---
ADMINISTERED MEDS PER MD ORDER. PT TOLERATED WELL. NO SIGNS OF RESPIRATION DISTRESS NOTED.
[2018-09-15] MEDS ORDERED: METH4TAB3 PO (09:01)
[2018-09-15] MEDS ORDERED: AZIT250T3 PO (09:04)
[2018-09-15] MEDS ORDERED: LACT1.4C PO (09:04)
[2018-09-15] MEDS ORDERED: ATOR40TA40 PO (09:46)
--- NOTE | 2018-09-15 10:55 | NUR ---
PT IS RESTING ON BED AT THIS BED. NO SIGNS OF RESPIRATION DISTRESS NOTED. DISCHARGE DOCUMENTS HAS PREPARED COMPLETELY.
--- NOTE | 2018-09-15 11:18 | NUR ---
PT SIGNED ALL DISCHARGED DOCUMENTS AND AWAITING FOR FAMILY ARRIVAL.
--- NOTE | 2018-09-15 11:50 | NUR ---
ADMINISTERED PNA VACCINE AND VACCINATION EDUCATION PROVIDED. NO BLEEDING AT INJECTION SITE. BANDAGE APPLIED AT INJECTION SITE. PT IS GETTING READY TO CHANGE INTO HIS OWN CLOTHES.
--- NOTE | 2018-09-15 12:36 | NUR ---
DISCHARGE INSTRUCTION GIVEN IN PATIENT'S PREFERRED LANGUAGE [employer]. EDUCATED PATIENT ON DISEASE MANAGEMENT,S&S, MEDICATION REGIMENT ON BEDSIDE. 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 ARM BANDS HAS REMOVED. PICKED UP ALL HIS BELONGINGS. ESCORTED PATIENT TO THE LOBBY. PATIENT IS IN STABLE CONDITION. PATIENT IS DISCHARGED AT THIS TIME.
== END 2018-09-15 12:36 | disposition home or self-care (01) | DRG 189 ==
LOC: MED 15:27 → MTU 18:00 → UNDODISIN 09-15 12:36
PROVIDERS: ADMIT General Practice; ATTEND General Practice
PROC: 5A09357 Assistance with Respiratory Ventilation, Less than 24 Consecutive Hours, Continuous Positive Airway Pressure (ICD-10-PCS; principal; 2018-09-13)
PROC: 5A09357 Assistance with Respiratory Ventilation, Less than 24 Consecutive Hours, Continuous Positive Airway Pressure (ICD-10-PCS; 2018-09-14)
PROC: 3E0234Z Introduction of Serum, Toxoid and Vaccine into Muscle, Percutaneous Approach (ICD-10-PCS; 2018-09-14)
DX: J96.00 Acute respiratory failure, unspecified whether with hypoxia or hypercapnia (principal); J45.901 Unspecified asthma with (acute) exacerbation; J45.902 Unspecified asthma with status asthmaticus; E44.1 Mild protein-calorie malnutrition; F12.929 Cannabis use, unspecified with intoxication, unspecified; E78.5 Hyperlipidemia, unspecified; Z68.32 Body mass index [BMI] 32.0-32.9, adult; Z88.8 Allergy status to other drugs, medicaments and biological substances; I10 Essential (primary) hypertension; Z87.891 Personal history of nicotine dependence; E83.39 Other disorders of phosphorus metabolism; F12.90 Cannabis use, unspecified, uncomplicated; Z23 Encounter for immunization
CPT/HCPCS: 36415; 71045; 80048; 80053; 80305; 81003; 83036; 83605; 83735; 83880; 84100; 84436; 84439; 84443; 84479; 84484; 85025; 85379; 85610; 85730; 87081; 87086; 87804; 90732; 93005; 94640; 94660; 96374; 96375; 99285; J1644; J2930; J3475; J3490; J7030; J7620; J7626; Q0092

== ENCOUNTER 2018-12-27 13:17 | Inpatient (IN) | payer OTHER ==
[~2018-12-27] VITALS: Ht 172.7 cm; Wt 82.1 kg
[~2018-12-27 13:17] MED LIST changes: +ATOR40TA40 PO; +AZIT250T3 PO; -BECL10.62 IH; +BUDE1AER IH; -FLOR250 PO; +LACT1.4C PO; +METH4TAB3 PO; -PRED10TA5 PO; -SERT25TA PO
[2018-12-27 13:20] VITALS: BP 152/85
--- NOTE | 2018-12-27 13:30 | NUR ---
PT AMBULATED TO BED 5
[2018-12-27] MEDS ORDERED: ALBUTEROL SULFATE/IPRATROPIU 3 ML SOL IH ONE ×2 (13:35→16:20)
[2018-12-27] MEDS ORDERED: methylPREDNISolone SS 125 MG in WATER STERILE 2 ML IM ONE (13:35)
[2018-12-27] MEDS ORDERED: NACL 0.9% 1,000 ML IV ONE (13:44)
[2018-12-27] MEDS ORDERED: methylPREDNISolone SS 125 MG in WATER STERILE 2 ML IV ONE (13:45)
[2018-12-27] MEDS ORDERED: ACETAMINOPHEN EXTRA STRENGTH 500 MG TAB PO ONE (13:50)
--- NOTE | 2018-12-27 13:50 | NUR ---
pt was placed on 2 lpm of O2 via nasal cannula
--- NOTE | 2018-12-27 14:01 | NUR ---
RT AT BEDSIDE
--- NOTE | 2018-12-27 14:02 | NUR ---
ADMITTING DX: DIFFICULTY BREATHING HX: ASTHMA AWAKE AND ALERT VERBALLY RESPONSIVE EDUCATION PROVIDE TO PATIENT WITH ACKNOWLEDGEMENT ON [facility] THERAPY AND RESPIRATORY DRUG FOREMENTIONED GIVEN ORDERED ENCOURAGED PATIENT FOR INTERMITTENT DEEP BREATHING AND COUGH TOLERATED TX WELL WITHOUT INCIDENT
--- NOTE | 2018-12-27 14:13 | NUR ---
PT TACHY AT 113. NEW TEMP IS 99.1 TEMPORAL. BP 132/68. 97% OXYGEN ON 2 L NC. PT ALERT AND ORIENTED.
[2018-12-27 14:22] LABS: BASOPHILS % (AUTO) 0.3 % (0.0-2.0); EOSINOPHILS % (AUTO) 0.2 % (0.0-4.0); HEMATOCRIT 45.2 % (36-52); HEMOGLOBIN 15.2 g/dL (12.0-18.0); LYMPHOCYTES % (AUTO) 6.1 % (20.5-51.1); MEAN CORPUSCULAR HEMOGLOBIN 30 pg (27-31); MEAN CORPUSCULAR HGB CONC 34 g/dL (33-37); MONOCYTES # (AUTO) 2.1 K/uL (0.8-1.0); MONOCYTES % (AUTO) 13.7 % (1.7-9.3); NEUTROPHILS # (AUTO) 12.4 K/uL (1.8-7.7); NEUTROPHILS % (AUTO) 79.7 % (42.2-75.2); PLATELET COUNT (AUTO) 349 K/uL (140-450); RED BLOOD CELL COUNT(AUTO) 5.08 MIL/uL (4.20-6.10); RED CELL DISTRIBUTION WIDTH 15.9 % (11.6-13.7); WHITE BLOOD COUNT (AUTO) 15.6 K/uL (4.8-10.8)
[2018-12-27 14:34] LABS: PROTHROMBIN TIME 10.6 secs (10.8-13.4)
[2018-12-27 14:37] LABS: ANION GAP 13.8 (8-16); CARBON DIOXIDE 26.4 mmol/L (21-32); CREATININE 1.3 mg/dL (0.7-1.3); POTASSIUM 3.2 mmol/L (3.5-5.1)
[2018-12-27 14:50] LABS: ALBUMIN 3.3 g/dL (3.4-5.0); TOTAL BILIRUBIN 1.4 mg/dL (0.0-1.0)
--- NOTE | 2018-12-27 15:09 | NUR ---
C/O DIFFICULTY TO BREATH. PT HAS BEEN TX WITH NEBULIZER AT HOME WITH RELIEF, LAST USED 1 HOUR AGO. RR 24, EVEN, NON LABORED, WHEEZES THROUGHOUT. BODY ACHES, LOSS OF APPETITE X4 DAYS. PT REPORTS FEVER, CURRENTLY TEMP 101.9. NO COUGH. MEDHX:ASTHMA, INTUBATION RX:DUO NEB, PREDNISONE
[2018-12-27] MEDS ORDERED: PRED10TA5 PO (15:24)
[2018-12-27] MEDS ORDERED: cefTRIAXone 1,000 MG VIAL ONE (15:39)
--- NOTE | 2018-12-27 16:18 | NUR ---
PT TACHY AT 101. ALL OTHER VITAL SIGNS STABLE
--- NOTE | 2018-12-27 16:34 | NUR ---
FOLLOW UP [facility] THERAPY AND RESPIRATORY DRUG GIVEN ENCOURAGED INTERMITTENT DEEP BREATHING DURING THERAPY
--- NOTE | 2018-12-27 16:42 | NUR ---
Note dionnesalima in EDM - 12/27/18 at 1646 by [email or web address] Patient discharged with v/s stable. Written and verbal after care instructions given and explained. Patient alert, oriented and verbalized understanding of instructions. Ambulatory with steady gait. All questions addressed prior to discharge. ID band removed. Patient advised to follow up with PMD. Rx of NAPROSYN given. Patient educated on indication of medication including possible reaction and side effects. Opportunity to ask questions provided and answered.
[2018-12-27] MEDS ORDERED: HYDROcodone/APAP 7.5/325 MG 1 TAB PO PRN ×2 (16:50→17:15)
[2018-12-27] MEDS ORDERED: ONDANSETRON 4 MG/2 ML VIAL IVP PRN ×2 (16:50→17:15)
[2018-12-27] MEDS ORDERED: NACL 0.9% 1,000 ML IV SCH (16:50)
[2018-12-27] MEDS ORDERED: ACETAMINOPHEN 325 MG TAB PO PRN ×2 (16:50→17:15)
[2018-12-27] MEDS ORDERED: ALBUTEROL SULFATE/IPRATROPIU 3 ML SOL IH PRN (17:10)
--- NOTE | 2018-12-27 17:17 | NUR ---
Patient will be admitted to care of [facility]. Admited to TELE. Will go to room 119B. Belongings list completed. Report to KIKE ALEJO.
--- NOTE | 2018-12-27 17:22 | NUR ---
RECEIVED REPORT FROM EMERGENCY ROOM NURSE FOR CONTINUITY OF CARE. RESPIRATIONS EVEN UNLABORED. IV INTACT AND PATENT. WILL CONTINUE TO MONITOR. BED IN LOW POSITION. CALL LIGHT AT BEDSIDE. BED ALARM ON.
[2018-12-27 17:34] LABS: FREE T4 (FREE THYROXINE) 1.02 ng/dL (0.76-1.46); MAGNESIUM 1.9 mg/dL (1.8-2.4); PHOSPHORUS 1.7 mg/dL (2.5-4.9); THYROID STIMULATING HORMONE 1.16 uIU/mL (0.34-3.74)
[2018-12-27] MEDS ORDERED: POTASSIUM CHLORIDE 10 MEQ TABER PO ONE (17:35)
[2018-12-27 18:17] VITALS: BP 111/79
[2018-12-27] MEDS: NACL 0.9% 1,000 ML IV SCH (18:27)
[2018-12-27] MEDS: ALBUTEROL SULFATE/IPRATROPIU 3 ML SOL IH SCH (18:42)
[2018-12-27] MEDS ORDERED: AZITHROMYCIN 500 MG INJ VIAL IV ONE (18:58)
[2018-12-27] MEDS: AZITHROMYCIN 500 MG in DEXTROSE 5% 250 ML IV SCH (19:01)
--- NOTE | 2018-12-27 19:27 | NUR ---
GAVE REPORT TO INDUSTRIAL AUTOMATION SPECIALIST NURSE FOR CONTINUITY OF CARE. PT IN STABLE CONDITION.
--- NOTE | 2018-12-27 19:28 | NUR ---
RECEIVED BEDSIDE REPORT FROM DAY SHIFT NURSEKIKE. PT IN STABLE CONDITION. NO S/S OF SOB OR ANY RESPIRATORY DISTRESS NOTED WITH O2 2LPM VIA NC. SKIN IS INTACT. WARM AND DRY TO TOUCH. IV TO LAC 18G, RUNNING NS @ 50MLS/HR. PATENT, INTACT, AND ASYMPTOMATIC. DENIED PAIN. ALL SAFETY MEASURES IN PLACE. CALL LIGHT WITHIN REACH. WILL CONTINUE TO MONITOR.
[2018-12-27 20:00] VITALS: BP 100/62
[2018-12-27] MEDS: DOCUSATE SODIUM 100 MG GELCAP PO SCH (20:12)
--- NOTE | 2018-12-27 20:12 | NUR ---
PT AWAKE AND ALERT, LYING IN THE BED. GIVEN ALL SCHEDULED MEDICATION. PT TOLERATED WELL.
[2018-12-27] MEDS ORDERED: DOCUSATE SODIUM 100 MG GELCAP PO SCH (21:00)
--- NOTE | 2018-12-27 21:00 | NUR ---
SEQUENTIAL COMPRESSION DEVICE NOT APPLIED D/T PT CAN AMBULATE WELL AND ON HEPARIN.
[2018-12-27 21:19] LABS: APPEARANCE,URINE CLEAR (CLEAR); BILIRUBIN,URINE NEGATIVE (NEGATIVE); BLOOD, URINE 1+ (NEGATIVE); COLOR,URINE YELLOW (YELLOW); LEUKOCYTE ESTERASE ,URINE NEGATIVE (NEGATIVE); NITRITE, URINE NEGATIVE (NEGATIVE); PH,URINE 6.5 (5.0-9.0); UGLUCOSE 3+ (NEGATIVE)
[2018-12-27 21:25] LABS: BARBITURATE, URINE NEG. ng/ml (NEG <=200); BENZODIAZEPINE, URINE NEG. ng/mL (NEG <=200); CANNABINOID, URINE POS. ng/mL (NEG <=50); COCAINE, URINE NEG. ng/mL (NEG <=300); OPIATE, URINE NEG. ng/mL (NEG <=2000); PHENCYCLIDINE SCREEN,URINE NEG. ng/mL (NEG <=25); RBC,URINE 0-5 /HPF (0-5); WBC,URINE 0-5 /HPF (0-5)
--- NOTE | 2018-12-27 21:55 | NUR ---
COLLECT URINE SAMPLE AND SEND TO THE LAB.
[2018-12-27] MEDS: methylPREDNISolone SS 125 MG/2 ML VIAL IVP SCH (23:33)
--- NOTE | 2018-12-27 23:33 | NUR ---
GIVEN SOLU-MEDROL MD ORDERED. PT TOLERATED WELL. VS CHECK. WITHIN PT BASELINE. CHANGED GOWN D/T WET GOWN. WILL CONTINUE TO MONITOR.
[2018-12-28] VITALS: BP 92/52
--- NOTE | 2018-12-28 01:05 | NUR ---
PT AWAKE. SWEAT ON GOWN AND CHILL NOTED. PROVIDE NEW GOWN AND TEMP CHECKED. 98.2 F BY ORAL. PROVIDED WARM BLANKET AND TURN A/C OFF. WILL CONTINUE TO MONITOR.
--- NOTE | 2018-12-28 02:09 | NUR ---
PT AWAKE, TALKING ON THE PHONE. NO CHILL NOTED. PT STATED "I AM NOT COLD NOW." WILL CONTINUE TO MONITOR.
[2018-12-28 04:00] VITALS: BP 114/74
[2018-12-28] MEDS: methylPREDNISolone SS 125 MG/2 ML VIAL IVP SCH ×2 (04:23→16:03)
--- NOTE | 2018-12-28 04:23 | NUR ---
GIVEN SOLU-MEDROL MD ORDERED. PT TOLERATED WELL. VS CHECKED. WITHIN NORMAL RANGE. WILL CONTINUE TO MONITOR.
--- NOTE | 2018-12-28 05:15 | NUR ---
PT SLEEPING IN BED. NO S/S OF SOB OR ANY RESPIRATORY DISTRESS NOTED. BED IN LOW POSITION. CALL LIGHT WITHIN REACH.
[2018-12-28] MEDS: ALBUTEROL SULFATE/IPRATROPIU 3 ML SOL IH SCH ×3 (07:08→19:21)
--- NOTE | 2018-12-28 07:13 | NUR ---
ENDORSE PT TO DAY SHIFT NURSEKIKE. PT IN STABLE CONDITION.
--- NOTE | 2018-12-28 07:14 | NUR ---
RECEIVED REPORT FROM TRAUMA COORDINATOR NURSE MARIANO FOR CONTINUITY OF CARE. PT IN STABLE CONDITION. RESPIRATIONS EVEN AND UNLABORED. O2 2L VIA NC INTACT AND PATENT. IV INTACT AND PATENT. SAFETY MEASURES IN PLACE. BED IN LOW POSITION. CALL LIGHT AT BEDSIDE. WILL CONTINUE TO MONITOR.
[2018-12-28 07:29] LABS: ANION GAP 14.1 (8-16); CARBON DIOXIDE 24.3 mmol/L (21-32); POTASSIUM 4.4 mmol/L (3.5-5.1)
[2018-12-28 07:41] LABS: BASOPHILS # (AUTO) 0.1 K/uL (0.00-0.22); BASOPHILS % (AUTO) 0.7 % (0.0-2.0); HEMATOCRIT 41.5 % (36-52); HEMOGLOBIN 13.9 g/dL (12.0-18.0); LYMPHOCYTES # (AUTO) 0.5 K/uL (2.0-11.5); LYMPHOCYTES % (AUTO) 3.4 % (20.5-51.1); MAGNESIUM 2.4 mg/dL (1.8-2.4); MEAN CORPUSCULAR HEMOGLOBIN 30 pg (27-31); MEAN CORPUSCULAR HGB CONC 33 g/dL (33-37); MEAN CORPUSCULAR VOLUME 89.8 fL (80-94); MONOCYTES # (AUTO) 0.6 K/uL (0.8-1.0); MONOCYTES % (AUTO) 4.1 % (1.7-9.3); NEUTROPHILS # (AUTO) 14.5 K/uL (1.8-7.7); NEUTROPHILS % (AUTO) 91.8 % (42.2-75.2); PHOSPHORUS 2.5 mg/dL (2.5-4.9); PLATELET COUNT (AUTO) 349 K/uL (140-450); RED BLOOD CELL COUNT(AUTO) 4.62 MIL/uL (4.20-6.10); RED CELL DISTRIBUTION WIDTH 15.5 % (11.6-13.7); WHITE BLOOD COUNT (AUTO) 15.8 K/uL (4.8-10.8)
[2018-12-28 08:00] VITALS: BP 111/72
--- NOTE | 2018-12-28 08:44 | NUR ---
PATIENT HAS BEEN SCREENED AND CATEGORIZED MODERATE NUTRITION RISK. PATIENT WILL BE SEEN WITHIN 3-5 DAYS OF ADMISSION. 12/30/18[address]
[2018-12-28] MEDS: DOCUSATE SODIUM 100 MG GELCAP PO SCH ×2 (08:54→21:40)
[2018-12-28] MEDS ORDERED: ATORVASTATIN 20 MG TAB PO SCH (09:00)
--- NOTE | 2018-12-28 10:15 | NUR ---
PT LYING IN BED TALKING ON HIS PHONE IN STABLE CONDITION. BED IN LOW POSITION. CALL LIGHT AT BEDSIDE. WILL CONTINUE TO MONITOR.
[2018-12-28] MEDS ORDERED: BUDESONIDE 0.5 MG/2 ML NEBU INH SCH (10:49)
[2018-12-28] MEDS ORDERED: LACTOBACILLUS RHAMNOSUS GG 1 EACH CAP PO SCH (11:00)
[2018-12-28] MEDS ORDERED: LORATADINE 10 MG TAB PO SCH (11:00)
[2018-12-28] MEDS ORDERED: MONTELUKAST SODIUM 10 MG TAB PO SCH (11:00)
[2018-12-28 12:00] VITALS: BP 108/70
--- NOTE | 2018-12-28 13:33 | NUR ---
PT LYING IN BED WATCHING TV IN STABLE CONDITION. WILL CONTINUE TO MONITOR. CALL LIGHT AT BEDSIDE.
--- NOTE | 2018-12-28 15:40 | NUR ---
CONSENT SIGNED FOR CT CHEST WITH CONTRAST AT THIS TIME.
[2018-12-28 16:00] VITALS: BP 119/80
[2018-12-28] MEDS: NACL 0.9% 1,000 ML IV SCH (16:02)
[2018-12-28] MEDS: AZITHROMYCIN 500 MG in DEXTROSE 5% 250 ML IV SCH (18:46)
[2018-12-28] MEDS: BUDESONIDE 0.5 MG/2 ML NEBU INH SCH (19:21)
--- NOTE | 2018-12-28 19:27 | NUR ---
GAVE REPORT TO CREDIT REVIEW ANALYST NURSE MYRIAM FOR CONTINUITY OF CARE. PT IN STABLE CONDITION.
--- NOTE | 2018-12-28 19:34 | NUR ---
Received endorsement from AM shift RN; patient A/Ox4, able to make needs known, ambulatory. Patient watching TV; introduced self, updated board. No SOB or distress noted, on O2 2LPM via nasal cannula. IV site on left antecubital, 18 gauge, running IVF at 50mL/hr. Skin intact. Bed in he lowest position, call light within reach. Initial assessment done. Will continue to monitor.
--- NOTE | 2018-12-28 21:45 | NUR ---
Due meds given; tolerated well.
--- NOTE | 2018-12-28 23:50 | NUR ---
Vitals taken, no distress noted.
[2018-12-29] VITALS: BP 103/59
[2018-12-29] MEDS: methylPREDNISolone SS 125 MG/2 ML VIAL IVP SCH ×3 (00:07→12:29)
[2018-12-29] MEDS ORDERED: methylPREDNISolone SS 125 MG/2 ML VIAL ONE (00:15)
--- NOTE | 2018-12-29 02:11 | NUR ---
Checks made; patient asleep, eyes closed, visible chest rise and fall noted.
--- NOTE | 2018-12-29 04:55 | NUR ---
Rounds done; patient asleep on right lateral side. No distress noted.
[2018-12-29 05:56] LABS: HEMATOCRIT 41.1 % (36-52); HEMOGLOBIN 13.5 g/dL (12.0-18.0); MEAN CORPUSCULAR HEMOGLOBIN 30 pg (27-31); MEAN CORPUSCULAR HGB CONC 33 g/dL (33-37); PLATELET COUNT (AUTO) 368 K/uL (140-450); RED BLOOD CELL COUNT(AUTO) 4.57 MIL/uL (4.20-6.10); RED CELL DISTRIBUTION WIDTH 15.9 % (11.6-13.7); WHITE BLOOD COUNT (AUTO) 22.4 K/uL (4.8-10.8)
[2018-12-29 06:29] LABS: ANION GAP 13.4 (8-16); CARBON DIOXIDE 26.3 mmol/L (21-32); POTASSIUM 4.7 mmol/L (3.5-5.1)
[2018-12-29 06:37] LABS: MAGNESIUM 2.5 mg/dL (1.8-2.4)
--- NOTE | 2018-12-29 07:28 | NUR ---
Endorsed patient to AM shift RN for continuity of care; patient in stable condition.
[2018-12-29] MEDS: ALBUTEROL SULFATE/IPRATROPIU 3 ML SOL IH SCH ×3 (07:34→20:04)
[2018-12-29 07:35] LABS: LYMPHOCYTES % (MANUAL) 0 % (20-46); MONOCYTES % (MANUAL) 8 % (5-12)
[2018-12-29] MEDS: BUDESONIDE 0.5 MG/2 ML NEBU INH SCH ×2 (07:35→20:04)
--- NOTE | 2018-12-29 07:40 | NUR ---
Report received from night nurse MYRIAM, Pt awake a/o appropriate for age and able to communicate needs. Pt denies n/v, pain at this time. No s/s of acute distress noted at this time. Call light and safety precautions in place, personal items within reach, will continue to monitor
[2018-12-29 08:00] VITALS: BP 117/79
[2018-12-29] MEDS ORDERED: MONTELUKAST SODIUM 10 MG TAB PO SCH (09:00)
[2018-12-29] MEDS ORDERED: LORATADINE 10 MG TAB PO SCH (09:00)
[2018-12-29] MEDS ORDERED: LACTOBACILLUS RHAMNOSUS GG 1 EACH CAP PO SCH (09:00)
[2018-12-29] MEDS: DOCUSATE SODIUM 100 MG GELCAP PO SCH ×2 (09:23→20:21)
--- NOTE | 2018-12-29 10:00 | NUR ---
Pt remains awake a/o and able to communicate needs. Pt denies n/v, pain at this time. Provided education on repositioning every 2 hours and pressure injury prevention, pt verbalized understanding. Call light and safety precautions in place, personal items within reach, will continue to monitor.
--- NOTE | 2018-12-29 12:00 | NUR ---
Pt remains awake a/o and able to communicate needs. on the telephone at this time, no s/s of acute distress noted, denies sob, denies pain at this time. Call light and safety precautions in place, personal items within reach, will continue to monitor.
--- NOTE | 2018-12-29 14:00 | NUR ---
Pt resting at this time,appears comfortable. No s/s of acute distress noted, call light and safety precautions in place, personal items within reach, will continue to monitor.
[2018-12-29] MEDS ORDERED: CEFT1SOL1 IV (15:17)
[2018-12-29] MEDS ORDERED: MONT10TA35 PO (15:17)
[2018-12-29] MEDS ORDERED: [UNRECOGNIZED DRUG - CODE] IV (15:17)
[2018-12-29] MEDS ORDERED: AZIT500P1 IV (15:17)
[2018-12-29] MEDS ORDERED: LORA10OD44 PO (15:17)
[2018-12-29] MEDS ORDERED: PUL.5N NEB (15:17)
--- NOTE | 2018-12-29 15:33 | NUR ---
CASE MANAGEMENT: ELEAZAR RECEIVED A CALL FROM PRAKASH ( LIMNOLOGY TEACHER @ [facility]) @ THAT PATIENT HAS BEEN ARRANGED TO BE TRANSFERRED BY PROBATE PARALEGAL ( [facility]EN[facility] @ [facility]). PATIENT IS GOING TO ROOM 690B. ACCEPTING MD IS DR. GONZALES. FOR REPORT CALL P . CM ATTEMPTED TO CALL WELDER TACK BEN[facility]O @ [facility] @ . HOWEVER, WAS UNAVAILABLE. CM CALLED VANDA ( PROCESSING ENGINEER CM @ [facility]), TRANSPORTATION AUTH OBTAINED IT IS [id number] AND TRANSPORTATION HAS BEEN SETUP WITH [employer] @ [phone] SPOKE WITH STANLEY AND EARLIEST AVAILABLE MANNEQUIN MOLDER TIME IS AT 9PM. CM CONTACTED PATIENT's MOTHER (EL STRANGE) @ P AND INFORMED HER OF THE TRANSFER. PATIENT's MOTHER AGREED TO THE TRANSFER. CM MADE DR. MA AND PATIENT's NURSE AWARE.
[2018-12-29] MEDS: NACL 0.9% 1,000 ML IV SCH (15:41)
[2018-12-29 16:00] VITALS: BP 125/70
--- NOTE | 2018-12-29 16:00 | NUR ---
Pt has visitor at bedside. Pt remains awake a/o and able to communicate needs, pt notified of pending transfer to [facility] and is agreeable. Pt denies sob, denies pain at this time. No s/s of acute distress noted. Call light and safety precautions in place, personal items within reach, will continue to monitor.
[2018-12-29] MEDS: AZITHROMYCIN 500 MG in DEXTROSE 5% 250 ML IV SCH (17:17)
--- NOTE | 2018-12-29 18:13 | NUR ---
Called Dianna at [facility] [phone] for report, per Dianna report should be given by the automated manufacturing instructor to their nightsift. Pt currently having dinner, remains awake a/o and able to communicate needs, denies sob, denies pain at this time. No s/s of acute distress noted. Call light and safety precautions in place, personal items within reach, will continue to monitor.
--- NOTE | 2018-12-29 19:25 | NUR ---
Report given to night nurse MYRIAM. Pt remained awake a/o appropriate for age throughout shift and able to communicate needs. Pt resting at this time, appears comfortable. No s/s of acute distress noted. Call light and safety precautions in place, personal items within reach.
--- NOTE | 2018-12-29 19:35 | NUR ---
Gave report to Jessica ALEJO at [facility], in tele 6 at this time.
--- NOTE | 2018-12-29 19:40 | NUR ---
Received endorsement from AM shift RN; patient A/Ox4, able to make needs known, ambulatory. Patient watching TV; introduced self, updated board. No SOB or distress noted, on O2 2LPM via nasal cannula. IV site on left antecubital, 18 gauge, saline locked. Skin intact. Bed in he lowest position, call light within reach. Initial assessment done. Will continue to monitor.
--- NOTE | 2018-12-29 20:21 | NUR ---
RECEIVED PATIENT ON ROOM AIR, PULSE OX SAT 95%. SCHEDULED BREATHING TREATMENTS ADMINISTERED. TOLERATED TREATMENTS WELL. ORAL RINSE DONE POST TX. NO RESPIRATORY DISTRESS NOTED AT THIS TIME. WILL CONTINUE TO MONITOR.
--- NOTE | 2018-12-29 20:55 | NUR ---
Due meds given, tolerated well. No distress noted. Patient watching TV.
--- NOTE | 2018-12-29 22:45 | NUR ---
Patient discharged to [facility] via [facility]; able to ambulate from bed to rney with no assistance. IV site on left antecubital intact per request of Jessica ALEJO. Discharge paperwork signed and discharge packet given to patient. Patient left unit accompanied by two transport personnel. Patient in stable condition upon discharge.
[2018-12-29] MEDS ORDERED: methylPREDNISolone SS 40 MG/ML VIAL IVP SCH (23:00)
[2018-12-30] MEDS ORDERED: methylPREDNISolone SS 40 MG/ML VIAL IVP SCH (23:00)
== END 2018-12-29 22:40 | disposition short-term general hospital (02) | DRG 871 ==
LOC: MED 13:17 → MTU 16:54 → MED 17:12
PROVIDERS: ADMIT General Practice; ATTEND General Practice
DX: A41.9 Sepsis, unspecified organism (principal); J18.1 Lobar pneumonia, unspecified organism; J45.901 Unspecified asthma with (acute) exacerbation; E87.1 Hypo-osmolality and hyponatremia; E44.1 Mild protein-calorie malnutrition; E87.6 Hypokalemia; E66.9 Obesity, unspecified; E78.5 Hyperlipidemia, unspecified; R73.03 Prediabetes; R31.9 Hematuria, unspecified; E83.39 Other disorders of phosphorus metabolism; E87.8 Other disorders of electrolyte and fluid balance, not elsewhere classified; E83.41 Hypermagnesemia; R91.1 Solitary pulmonary nodule; Z71.3 Dietary counseling and surveillance; Z68.27 Body mass index [BMI] 27.0-27.9, adult; Z90.81 Acquired absence of spleen; Z80.3 Family history of malignant neoplasm of breast
CPT/HCPCS: 36415; 71045; 71046; 71260; 80048; 80053; 80305; 81001; 82150; 83036; 83605; 83690; 83735; 83880; 84100; 84439; 84443; 84484; 85025; 85610; 87040; 87081; 93005; 94640; 96365; 96375; 99285; J0456; J0696; J1644; J2930; J7030; J7060; J7620; J7626; Q0092; Q9967